=== PATIENT | female | born 1935 | race Caucasian/White ===

== ENCOUNTER 2020-09-27 13:29 | Outpatient (REF) | payer SELFPAY | END 2020-09-27 13:30 | disposition home or self-care (01) | LOC: HO.HAP 13:29 | DX: Z13.89 Encounter for screening for other disorder (principal) | CPT/HCPCS: 92700 ==

== ENCOUNTER 2020-10-16 13:25 | Outpatient (REF) | payer SELFPAY | END 2020-10-16 13:26 | disposition home or self-care (01) | LOC: HO.HAP 13:25 | DX: Z13.89 Encounter for screening for other disorder (principal) | CPT/HCPCS: 92700 ==

== ENCOUNTER 2020-10-23 10:25 | Outpatient (REF) | payer SELFPAY | END 2020-10-23 10:26 | disposition home or self-care (01) | LOC: HO.HAP 10:25 | DX: Z13.89 Encounter for screening for other disorder (principal) | CPT/HCPCS: 92700 ==

== ENCOUNTER 2024-02-23 10:32 | Outpatient (AMB) | payer MEDICARE, OTHER, SELFPAY ==
[2024-02-23 10:58] VITALS: PULSE 81; O2SAT 93; BMI 32.9
--- NOTE | 2024-02-23 10:58 | MHC.OFFVIS ---
Intake Vital Signs 02/23/24 10:58 Height 5 ft 2 in Weight 180 lb BMI 32.9 Pulse 81 Pulse Source Pulse Oximeter Pulse Oximetry (%) 93 Oxygen Delivery Method Room Air Intake Visit Reasons: COPD Maintenance Groundskeeper Required: No Allergies No Known Allergies Allergy (Verified 02/23/24 11:01) HPI HPI Comments History of Present Illness Details The patient is an 88-year-old woman with a known history of asthma COPD overlap syndrome, nocturnal hypoxia and sleep apnea. She does not use CPAP. She does use oxygen at nighttime. She has been having persistent wheezing and shortness of breath. She has a baseline. She is responding well to the current respiratory regimen. He has been having issues with cellulitis and lower extremity edema. She was initially placed on Keflex without any significant improvement. She was then [facility] which she had ultrasound negative for DVT and also had a chest x-ray demonstrating mild congestive heart failure with pleural effusions. She had been stopping her diuretics because occasions with eating or. However since then she has been using her Lasix daily 40 mg daily. She was also switched over to doxycycline appears to have cellulitis getting better but not completely gone. Therefore she needs additional antibiotics at this time. 02/28/2023 the patient is here for pulmonary follow-up visit. She continues to have some shortness of breath and chest tightness. She has a hard time walking. She does use a walker. She is now on continues oxygen although she has a portable oxygen concentrator in her house. She does to not be able to use the pulse device well. I encouraged her to try it again to see if she can get used to it in order for her to have better portability time. In addition to this the patient has been using her nebulized therapy. Seems like the DuoNeb works better than the other bronchodilator therapy so therefore will switch over to DuoNeb 4 times a day and she can use the budesonide twice a day. Hopefully this works a little better for as long she can tolerated. The patient also is having some allergy symptoms so therefore she should be placed on singular at this time to help her with her respiratory symptoms. 09/23/2023 the patient is here for pulmonary follow-up visit. overall the patient is doing better. Recently she did call because of worsening respiratory symptoms. The patient had a exacerbation of her breathing. She did take prednisone antibiotics and her symptoms did improve. she continues use respiratory therapy. Although she has been using the budesonide. She will go ahead and restarted once a day. In addition to that she does have increased lower extremity edema. She is not weighing herself. She does have a scale at home. patient did have a chest x-ray sometime in May 2023 demonstrating interval resolution of the pneumonia but she did have bilateral pleural effusions suggesting volume overload status. Patient is taking Lasix 40 mg daily. She will go ahead and increase it to 80 mg for 2-3 days and will continue to weigh herself. She will follow-up with her primary care doctor soon. 02/23/2024 the patient is here for a pulmonary follow-up visit. Overall she is doing okay. She still has her symptoms of dyspnea on exertion. [id number]-[id number] severity. She had a tendency of only using her nebulizer as needed. Family has become more adamant making sure that she does use it 2 to 3 times a day. I believe that this is helpful. Her symptoms have improved since she has been more adherent to her therapy. In addition to that we did look at her last chest x-ray demonstrating bilateral pleural effusions and suggesting of volume overload status. We did talk about the importance of monitoring closely her daily weights. The patient is aware that sometimes she may need additional diuresis. we talked about cardiac asthma as potential peribronchial edema could be the resulting in increased airway resistance and wheezing and chest tightness. Therefore she understands that keeping her volume status down will help her overall with her obstructive airway disease and also her dyspnea symptoms. She does continue to use a nebulizer therapy as is affective from beneficial. She also has her oxygen that she uses with activity and sleep. The therapy also has been affecting beneficial. [facility] Medical History (Updated 09/23/23 @ 19:07 by Sanchez Smith MD) COPD (chronic obstructive pulmonary disease) Acute confusion Pleural effusion Obesity Cataract Chronic kidney disease, stage 3b Anxiety Supplemental oxygen dependent Arthritis Intertrigo Hyperlipidemia CHF (congestive heart failure) Cellulitis Chest pain Chronic respiratory failure COPD (chronic obstructive pulmonary disease) Surgical History History of tonsillectomy History of appendectomy History of cataract surgery History of right hip replacement (~2014) History of bilateral knee replacement (~2006) Family History Father Asthma Mother Asthma Social History Household Members: Family Housing: House Do you presently have visiting nurse or other home services: No Alcohol intake: never Patient Tobacco Use Status: Never used Tobacco e-Cigarette/Vaping Use: Never Used Second Hand Smoke Exposure: No Advance Directives Date on File: 10/01/22 service: No Current occupational status: retired Cognitive needs: Yes (walker ) Hearing needs: No Vision needs: Yes (glasses) Review of Systems Const Denies chills, Reports daytime sleepiness, Reports difficulty sleeping, Reports fatigue, Denies fever(s) and Denies poor appetite Eyes Denies no additional complaints ENT Reports Normal hearing present Card Denies chest pain, Denies syncope, Denies rapid heart rate, Reports leg edema, Denies dyspnea and Reports dyspnea on exertion Resp Reports cough, Denies dyspnea, Reports dyspnea on exertion and Reports wheezing GI Denies change in stool character, Denies constipation, Denies diarrhea, Denies nausea and Denies vomiting Denies urinary frequency, Denies dysuria and Denies urinary urgency Neuro Reports Normal hearing present and Denies syncope Endo Reports fatigue Aller/Immun Reports wheezing Physical Exam Vital Signs: Last Vital Signs Pulse 81 02/23/24 10:58 Pulse Ox 93 02/23/24 10:58 Oxygen Delivery Method Room Air 02/23/24 10:58 BMI result Body Mass Index 32.9 Const General: tired appearing Neck Neck: Yes normal visual inspection, Yes full ROM and Yes no lymphadenopathy Chest Chest palpation & inspection: normal inspection of the chest Resp Auscultation: no rales, no rhonchi, no wheezes and diminished lung sounds Cardio Rate: regular rate Rhythm: regular rhythm Heart sounds: S1 normal heart sound present and S2 normal heart sound present GI Palpation (GI): Soft to palpation and nontender Auscultation: normal bowel sounds Skin General skin exam: rashes and/or lesions noted Neuro Cranial nerves: Yes Normal hearing present Extrem General: Yes edema and Yes venous stasis dermatitis Assessment & Plan Assessment & Plan (1) COPD (chronic obstructive pulmonary disease): Code(s): J44.9 - Chronic obstructive pulmonary disease, unspecified Qualifiers: COPD type: chronic bronchitis Chronic bronchitis type: simple Qualified Code(s): J41.0 - Simple chronic bronchitis (2) CHF (congestive heart failure): Code(s): I50.9 - Heart failure, unspecified Qualifiers: Heart failure chronicity: unspecified Heart failure type: unspecified Qualified Code(s): I50.9 - Heart failure, unspecified (3) Chronic respiratory failure: Code(s): J96.10 - Chronic respiratory failure, unspecified whether with hypoxia or hypercapnia Qualifiers: Respiratory failure complication: hypoxia Qualified Code(s): J96.11 - Chronic respiratory failure with hypoxia (4) Pleural effusion: Code(s): J90 - Pleural effusion, not elsewhere classified Plan continue budesonide daily Duoneb 2-4 times a day continue Singulair EMIR as needed Oxygen continuously 2L diuresis as tolerated daily weights, additional diuresis if >2lb/24hr or 3lbs/48 hours CXR if worsns Bloodwork F/U 4-6 months Orders: Orders XR chest 2V Today J41.0 - Simple chronic bronchitis, J90 - Pleural effusion, not elsewhere classified Complete Blood Count Auto Diff Today I50.9 - Heart failure, unspecified, J41.0 - Simple chronic bronchitis Liver Panel Today I50.9 - Heart failure, unspecified, J41.0 - Simple chronic bronchitis Immunoglobulin E Today I50.9 - Heart failure, unspecified, J41.0 - Simple chronic bronchitis Basic Metabolic Panel Today I50.9 - Heart failure, unspecified, J41.0 - Simple chronic bronchitis Erythrocyte Sedimentation Rate Today I50.9 - Heart failure, unspecified, J41.0 - Simple chronic bronchitis Coding Level of Care Code Est Pt Level 4 (91784) Diagnoses Simple chronic bronchitis J41.0 COPD type: chronic bronchitis Chronic bronchitis type: simple Congestive heart failure, unspecified HF chronicity, unspecified heart failure type I50.9 Heart failure chronicity: unspecified Heart failure type: unspecified Chronic respiratory failure with hypoxia J96.11 Respiratory failure complication: hypoxia Pleural effusion J90 Time Spent (min) 17
== END 2024-02-23 11:28 | disposition home or self-care (01) ==
PROVIDERS: PCP Internal Medicine; Visit Provider Hospitalist
DX: J41.0 Simple chronic bronchitis (principal); I50.9 Heart failure, unspecified; J96.11 Chronic respiratory failure with hypoxia; J90 Pleural effusion, not elsewhere classified
CPT/HCPCS: 99214

== ENCOUNTER → 2024-02-23 10:32 | Outpatient (BNVA) | payer MEDICARE, OTHER, SELFPAY | PROVIDERS: PCP Internal Medicine; Visit Provider Hospitalist | DX: J96.11 Chronic respiratory failure with hypoxia (principal); J90 Pleural effusion, not elsewhere classified; J41.0 Simple chronic bronchitis; I11.0 Hypertensive heart disease with heart failure; I50.9 Heart failure, unspecified; Z99.81 Dependence on supplemental oxygen | CPT/HCPCS: 99212 ==

== ENCOUNTER 2024-03-05 08:57 | Outpatient (AMB) | payer MEDICARE, OTHER, SELFPAY ==
[2024-03-05 10:17] VITALS: BP 110/60; PULSE 88; TEMP 36.3; O2SAT 95; BMI 32.2
--- NOTE | 2024-03-05 10:17 | AM.OFFWIN_ITS ---
Intake Vital Signs 03/05/24 10:17 Height 5 ft 2 in Weight 176 lb BMI 32.2 BP 110/60 Blood Pressure Location Lt brachial Position Sitting Pulse 88 Pulse Source Pulse Oximeter Temp 97.3 F Temp Source Temporal Artery Scan Pulse Oximetry (%) 95 Oxygen Delivery Method Room Air Intake Visit Reasons: EP Cough, Congestion Intake Note: pt is here today for cough congestion started 4 days ago Patient Tobacco Use Status: Never used Tobacco Allergies No Known Allergies Allergy (Verified 03/23/24 10:24) Do you need a note to return to daycare/school/sports/work: No HPI EP Cough, Congestion HPI Details Patient is an 88-year-old female with underlying COPD, congestive heart failure, and pneumonia history who comes to the walk-in clinic complaining of about a week of increased cough. Son is present with her today and reports that the cough has been worse as of the last 4 days. She has home oxygen but usually only requires it for extended exertion/outings, however she has been using it regularly now. She reports a productive cough worse than her baseline, along with shortness of breath. No nasal congestion, headache or dizziness, weakness, malaise or myalgias, fever or chills, chest pain, or other significant associated symptoms. [facility] Medical History COPD (chronic obstructive pulmonary disease) Acute confusion Pleural effusion Obesity Cataract Chronic kidney disease, stage 3b Anxiety Supplemental oxygen dependent Arthritis Intertrigo Hyperlipidemia CHF (congestive heart failure) Cellulitis Chest pain Chronic respiratory failure COPD (chronic obstructive pulmonary disease) Surgical History History of tonsillectomy History of appendectomy History of cataract surgery History of right hip replacement (~2014) History of bilateral knee replacement (~2006) Family History Father Asthma Mother Asthma Social History Household Members: Other Household Members Other:: grandchildren Housing: House Do you presently have visiting nurse or other home services: No Alcohol intake: never Patient Tobacco Use Status: Never used Tobacco e-Cigarette/Vaping Use: Never Used Second Hand Smoke Exposure: No Advance Directives Date on File: 10/01/22 service: No Current occupational status: retired Cognitive needs: Yes (walker ) Hearing needs: No Vision needs: Yes (glasses) Review of Systems Const All systems reviewed & are unremarkable except as noted in HPI and below Physical Exam Vital Signs: Last Vital Signs Temp 97.3 F 03/05/24 10:17 Pulse 88 03/05/24 10:17 BP 110/60 03/05/24 10:17 Pulse Ox 95 03/05/24 10:17 Oxygen Delivery Method Room Air 03/05/24 10:17 BMI result Body Mass Index 32.2 Const General: cooperative, comfortable, alert, awake, Physically active and well groomed; No anxious, diaphoretic, intoxicated appearing, poor hygiene or tired appearing Nutritional Appearance: average body habitus Orientation/consciousness: oriented to person HEENT Head: Yes normal to inspection, Yes normocephalic and Yes atraumatic Ears: hearing grossly normal bilaterally, external ears normal, TM's normal bilaterally and EAC's normal General nose exam: Normal external nose present Face and sinus: Yes normal facial exam, Yes sinuses nontender and Yes face symmetric Mouth: Normal oral and palatal mucosa present, lip normal and tongue normal Throat: Yes posterior oropharynx normal, No peritonsillar mass, No postnasal d rainage, No uvular edema and No cobblestoning Eyes General: appearance normal, both eyes and all related structures Neck Neck: Yes normal visual inspection, Yes full ROM, Yes no lymphadenopathy, Yes trachea midline, Yes supple and No anterior neck swelling Resp Other: Wearing nasal cannula with home oxygen tank Effort & Inspection: normal respiratory effort, able to speak in complete sentences (At rest), no audible wheezes, Actively coughing, no grunting, not labored, no nasal flaring, no retractions, no stridor, not tachypneic, no tripod positioning and symmetric chest movement Auscultation: no crackles, no rales, no rhonchi, no wheezes and diminished lung sounds Skin Other: Good color, warm and dry Neuro General: oriented to person Psych Appearance: grossly normal Mental Status: mental status grossly normal Speech and movement: Normal speech and movement present Affect: normal affect Attitude: cooperative Thought process: Normal thought process present Insight: Good insight present (Psych) Judgement: Good judgement present (Psych) Assessment & Plan Assessment & Plan (1) COPD exacerbation: Code(s): J44.1 - Chronic obstructive pulmonary disease with (acute) exacerbation Plan Patient is an 88-year-old female congestive heart failure, COPD and pneumonia history who comes to the walk-in clinic complaining of about a week of increased cough and mucus production, likely COPD exacerbation. Underlying viral syndrome likely, and COVID flu and RSV is pending. Two-view chest x-ray shows small bilateral effusions, and chronic changes from her COPD. I discussed this with the patient and her son, and as she is currently stable and has her home oxygen, I agreed to treat her outpatient over the weekend with course of antibiotics and a steroid taper. She should be monitored closely in have follow-up early next week either with PCP or infection control nurse if able. Son agreed to this, and to bring her to the emergency department with any worsening or worrisome symptoms Orders: Orders SARS-CoV2/FLU/RSV 03/05/24 R05.9 - Cough, unspecified XR chest 2V 03/05/24 R05.9 - Cough, unspecified Medications: New prednisone then take 3 tabs for 3 days, then 2 tabs for 3 days, then 1 tab for 3 days. 40 mg (4 x 10 mg) PO DAILY 30 tabs 0RF 3 days doxycycline hyclate 100 mg PO BID 20 tabs 0RF 10 days Coding Level of Care Code Est Pt Level 4 (02859) Diagnoses COPD exacerbation J44.1
== END 2024-03-05 12:21 | disposition home or self-care (01) ==
PROVIDERS: PCP Internal Medicine; Visit Provider Physician Assistant Medical
DX: J44.1 Chronic obstructive pulmonary disease with (acute) exacerbation (principal)
CPT/HCPCS: 99214

== ENCOUNTER 2024-03-05 10:42 | Outpatient (REF) | payer MEDICARE, OTHER, SELFPAY ==
--- NOTE | ~2024-03-05 | XR_ITS ---
EXAMINATION: XR CHEST CLINICAL INFORMATION: Cough COMPARISON: 05/26/2023 TECHNIQUE: 2 views of the chest were obtained. FINDINGS: Heart and mediastinum within normal limits. Aortic calcifications again seen. Mild biapical pleural thickening. No vascular congestion. Lungs remain hyperinflated. Small bilateral effusions and left base atelectasis. Bones are demineralized with mild compressions and mild kyphosis. XR/XR chest 2V IMPRESSION: Small effusions and left base atelectasis. Underlying hyperinflation.
[2024-03-05 15:07] LABS: Influenza A PCR NEGATIVE (Negative); Influenza B PCR NEGATIVE (Negative); Resp Syncy Virus RNA Qual PCR NEGATIVE (Negative); SARS COV2 PCR INHOUSE NEGATIVE (Negative)
== END 2024-03-05 10:43 | disposition home or self-care (01) ==
LOC: HO.HMGCX 10:42
PROVIDERS: PCP Internal Medicine; Visit Provider Physician Assistant Medical
DX: R05.9 Cough, unspecified (principal); J90 Pleural effusion, not elsewhere classified; J06.9 Acute upper respiratory infection, unspecified
CPT/HCPCS: 0241U; 71046

== ENCOUNTER 2024-03-22 08:35 | Outpatient (AMB) | payer MEDICARE, OTHER, SELFPAY ==
[2024-03-22 09:07] VITALS: BP 112/66; PULSE 63; TEMP 36.3; O2SAT 100; BMI 31.8
--- NOTE | 2024-03-22 09:07 | AM.OFFWIN_ITS ---
Intake Vital Signs 03/22/24 09:07 Height 5 ft 2 in Weight 174 lb BMI 31.8 BP 112/66 Blood Pressure Location Rt brachial Position Sitting Pulse 63 Pulse Source Pulse Oximeter Temp 97.4 F Temp Source Oral Pulse Oximetry (%) 100 Oxygen Delivery Method Room Air Intake Visit Reasons: EP lower back pain Intake Note: pt is here for lower back pain for the last few days Patient Tobacco Use Status: Never used Tobacco Allergies No Known Allergies Allergy (Verified 03/22/24 09:40) Medication List - Last Reconciled 03/22/24 by José Antonio Mays MD budesonide 0.5 mg (2 mL) inhalation BID calcitriol 0.5 mcg PO ISAAC@0900 ferrous sulfate 325 mg PO DAILY furosemide 40 mg PO DAILY ipratropium-albuterol 0.5 mg-3 mg(2.5 mg base)/3 mL 3 mL inhalation QID montelukast (Singulair) 10 mg PO BEDTIME 30 days zjpchmrr-pbo-[id number]-FA-vit K-lut 8 mg iron-400 mcg-50 mcg (Centrum Silver Women) 1 tab PO DAILY nebulizers As directed Oxygen Home Use As directed paroxetine HCl 40 mg PO BEDTIME potassium chloride ER 10 mEq PO DAILY simvastatin 40 mg PO BEDTIME Do you need a note to return to daycare/school/sports/work: No HPI EP lower back pain HPI Details 88 yr old female present to the office f or a sick visit. Patient is complaining of upper back pain and midthoracic pain in the past few days. No morning stiffness. She recently came often antibiotic week ago for presumed pneumonia. In the past symptoms of pain in the back have heralded a UTI. Patient reports no symptoms of burning or increased frequency of urination. No vaginal discharge. No fevers or chills. [facility] Medical History COPD (chronic obstructive pulmonary disease) Acute confusion Pleural effusion Obesity Cataract Chronic kidney disease, stage 3b Anxiety Supplemental oxygen dependent Arthritis Intertrigo Hyperlipidemia CHF (congestive heart failure) Cellulitis Chest pain Chronic respiratory failure COPD (chronic obstructive pulmonary disease) Surgical History History of tonsillectomy History of appendectomy History of cataract surgery History of right hip replacement (~2014) History of bilateral knee replacement (~2006) Family History Father Asthma Mother Asthma Social History Household Members: Family Housing: House Do you presently have visiting nurse or other home services: No Alcohol intake: never Patient Tobacco Use Status: Never used Tobacco e-Cigarette/Vaping Use: Never Used Second Hand Smoke Exposure: No Advance Directives Date on File: 10/01/22 service: No Current occupational status: retired Cognitive needs: Yes (walker ) Hearing needs: No Vision needs: Yes (glasses) Physical Exam Vital Signs: Last Vital Signs Temp 97.4 F 03/22/24 09:07 Pulse 63 03/22/24 09:07 BP 112/66 03/22/24 09:07 Pulse Ox 100 03/22/24 09:07 Oxygen Delivery Method Room Air 03/22/24 09:07 BMI result Body Mass Index 31.8 Const General: cooperative and healthy appearing Nutritional Appearance: well nourished Orientation/consciousness: patient oriented x3 Limitations: no limitations HEENT Head: Yes normal to inspection Eyes General: appearance normal, both eyes and all related structures Neck Neck: Yes normal visual inspection Chest Chest palpation & inspection: normal palpation of entire chest wall Resp Effort & Inspection: normal respiratory effort General: Yes no CVA tenderness Back/Spine/Pelvis Other: No paraspinal tenderness. Back: no CVA tenderness Neuro General: patient oriented x3 Results AMB Urinalysis, Automated UA Leukoctes 15 Kenzie/uL Last Edit by Dorothy Downs MA on 03/22/24 09:50 UA Nitrite Negative Last Edit by Dorothy Downs MA on 03/22/24 09:50 UA Urobilinogen 0.2 mg/dL Last Edit by Dorothy Downs MA on 03/22/24 09:50 UA Protein 15 mg/dL Last Edit by Dorothy Downs MA on 03/22/24 09:50 UA pH 6.5 Last Edit by Dorothy Downs MA on 03/22/24 09:50 UA Blood 0 Tripp/uL Last Edit by Dorothy Downs MA on 05/06/24 09:50 UA Specific [place] 1.010 Last Edit by Dorothy Downs MA on 03/22/24 09:50 UA Ketone Negative Last Edit by Dorothy Downs MA on 03/22/24 09:50 UA Bilirubin 1 mg/dL Last Edit by Dorothy Downs MA on 03/22/24 09:50 UA Glucose 0 mg/dL Last Edit by Dorothy Downs MA on 03/22/24 09:50 Assessment & Plan Assessment & Plan (1) Upper back pain: Code(s): M54.9 - Dorsalgia, unspecified Plan: Cyclobenzaprine added to the regimen. Xray is no different than the previous one. Urinalysis revd. Orders: Orders XR chest 2V Today R05.9 - Cough, unspecified Coding Level of Care Code Est Pt Level 4 (81440) Diagnoses Upper back pain M54.9
== END 2024-03-22 09:45 | disposition home or self-care (01) ==
PROVIDERS: PCP Internal Medicine; Visit Provider Internal Medicine
DX: M54.9 Dorsalgia, unspecified (principal)
CPT/HCPCS: 99214

== ENCOUNTER 2024-03-23 10:02 | Inpatient (IN) | payer MEDICARE, OTHER, SELFPAY ==
[2024-03-23] VITALS (9 sets, daily range): BP systolic 99–139; BP diastolic 47–83; PULSE 97–110; RESP 18–22; TEMP 36.6–37.2; O2SAT 88–100; BMI 32.4
--- NOTE | 2024-03-23 | ECG_ITS ---
Test Reason : CP Blood Pressure : / mmHG Vent. 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
--- NOTE | ~2024-03-23 | NM_ITS ---
PULMONARY PERFUSION ONLY STUDY: CLINICAL INDICATION: Shortness of breath. Chest pain. History of COPD. PROCEDURE: Following the intravenous administration of 3.9 millicuries technetium 99m MAA, images of the chest were obtained in multiple projections using a gamma scintiphotographic camera. The radiotracer was injected through right antecubital superficial vein. COMPARISON: Chest radiograph done on 03/23/[address] of the chest without contrast also done on 04/02/2024. PERFUSION IMAGES: No large segmental perfusion defects are present bilaterally. Decreased perfusion at left lung base seen on the posterior projection when correlating with the chest radiograph likely represent combination of pleuroparenchymal disease seen at left lung base and the contour defect produced by the heart. Note is also made of prominent pike likely represent changes secondary to known COPD. Both lung pike appear clear except for pleural parenchymal abnormalities seen at left lung base on the available chest radiograph done on the same day. NM/NM pul perfusion IMPRESSION: Based on perfusion only modified PIOPED 2 criteria, pulmonary thromboembolism is considered absent.
--- NOTE | ~2024-03-23 | CT_ITS ---
EXAMINATION: CT CHEST WITHOUT CONTRAST CLINICAL INFORMATION: COPD, chest and back pain, R/O pneumonia COMPARISON: CT chest May 15, 2023. Chest x-ray March 23, 2024 TECHNIQUE: Multidetector volumetric CT imaging of the chest was done. Axial MIP volume rendering provided. Sagittal and coronal reformatted images were obtained. This CT examination was performed using dose optimization techniques as appropriate, variously including the following: *Automated exposure control *Adjustment of mA and/or kV according to patient size (this includes techniques or standardized protocols for targeted exams where dose is matched to indication/reason for exam; i.e. extremities or head) *Use of iterative reconstruction technique DLP: 292 mGy-cm FINDINGS: LUNGS: There are a few scattered reticular nodular opacities of the lung. This includes an area where there was dense consolidation on CT chest May 15, 2023 at the posterior right upper lobe. This is likely therefore residual scarring. Linear parenchymal scarring at both lung bases. There is an ill-defined groundglass opacity in the subpleural lung right upper lobe measuring 1.5 cm axial image 262 series 6. This is stable since CAT scan May 15, 2023. According to the UPDATED 2017 Fleischner Society recommendations, the advised follow-up imaging for a single pure ground-glass nodule measuring 6 mm or greater is: CT at 6-12 months to confirm persistence, then CT every 2 years until 5 years if it persists. No acute airspace disease. No new lung nodules. There are scattered emphysematous lucencies of lungs bilaterally. MEDIASTINUM: Heart size is normal. No pericardial effusion. No significant lymphadenopathy. Small volume of calcifications of thoracic aorta. No aneurysm of aorta. CORONARY ARTERY CALCIFICATION: Small volume of coronary calcification PLEURA: There is no pleural effusion. No pleural mass or thickening. AXILLA: No lymphadenopathy. UPPER ABDOMEN: Redemonstration of cyst in left lobe of liver measuring 3.5 cm. Adrenal glands are normal. OSSEOUS STRUCTURES: Unremarkable. CT/CT chest wo IV con IMPRESSION: 1. No acute airspace disease. 2. Stable ill-defined groundglass opacity in the right upper lobe. According to the UPDATED 2017 Fleischner Society recommendations, the advised follow-up imaging for a single pure ground-glass nodule measuring 6 mm or greater is: CT at 6-12 months to confirm persistence, then CT every 2 years until 5 years if it persists. Fleischner guidelines were followed.
--- NOTE | ~2024-03-23 | XR_ITS ---
EXAMINATION: XR CHEST CLINICAL INFORMATION: Chest pain, shortness of breath COMPARISON: 03/22/2024 TECHNIQUE: Frontal view of the chest was obtained. FINDINGS: Stable small left greater than right pleural effusions area of linear atelectasis/scarring at the left lung base. No focal consolidation or edema. Stable cardiomediastinal silhouette. XR/XR chest 1V IMPRESSION: No significant change with small left greater than right pleural effusions.
--- NOTE | 2024-03-23 10:20 | PC.NURSE ---
a&ox4. vss and up to date aside from being sinus tachy on the monitor. 105bpm. pt presents to the ED d/t ongoing intermittent sternal chest pain that radiates towards lower back and dsypnea x 5 days. pt currently denies sx but displays w/ slight sob/wob. pt positioned into high fowlers. pt verbalizes transitioning from RA-2L via NC baseline for hx of COPD. on RA currently. 20gIV placed in the right AC - labs/urine obtained and sent to lab. ekg performed by tech. pt waiting to be seen by ED provider. plan of care ongoing.
[2024-03-23 10:35] LABS: MANUAL DIFF FLAG NO
[2024-03-23 10:42] LABS: Basophils Percent Auto 0.7 % (0-2); Eosinophils Absolute Auto 0.2 X10*3/uL (0.0-0.4); Eosinophils Percent Auto 2.5 % (0-4); Hematocrit 44.1 % (37.0-47.0); Hemoglobin 13.8 g/dl (12.0-16.0); Imm Gran Abs Auto 0.02 X10*3/uL (0.00-0.03); Imm Gran Pct Auto 0.3 % (0.0-0.4); Lymphocytes Absolute Auto 0.4 X10*3/uL (1.2-4.9); Lymphocytes Percent Auto 6.1 % (20-40); Mean Corpuscular HGB Conc 31.3 g/dl (31.0-35.0); Mean Corpuscular Hemoglobin 29.7 pg (27.0-33.0); Mean Corpuscular Volume 94.8 fL (80.0-98.0); Mean Platelet Volume 9.6 fL (9.4-12.3); Monocytes Absolute Auto 0.4 X10*3/uL (0.1-1.2); Monocytes Percent Auto 6.3 % (2-11); Neutrophils Absolute Auto 5.1 x10*3/uL (2.0-8.3); Neutrophils Percent Auto 84.1 % (45-73); Platelet Count 193 X10*3/uL (160-400); Red Blood Count 4.65 X10*6/uL (4.20-5.50); Red Cell Distribution Width 13.7 % (11.0-16.0)
--- NOTE | 2024-03-23 10:43 | PC.NURSE ---
pt ambulates to the restroom w/ a strong steady gait independently but became extremely sob and had to stop/hold on to wall. pt placed back in bed - 88% on RA. pt placed on 2L via NC - 96%. sob/wob noted at rest. pt positioned upright to promote patent airway. plan of care ongoing.
[2024-03-23 10:49] LABS: Appearance Urine Clear; Color Urine Yellow; Glucose Urine UA Negative (Negative); Leukocyte Esterase Urine Negative (Negative); Nitrite Urine Negative (Negative); PH 7.5 (5.0-9.0); Urine Blood Negative (Negative); Urine Ketones Negative (Negative); Urine Protein Negative (Neg-Trace)
[2024-03-23 10:50] LABS: Alanine Aminotransferase 17 U/L (0-31); Albumin Level 3.5 g/dL (3.5-5.0); Alkaline Phosphatase 77 U/L (39-117); Anion Gap 13 (12-20); Aspartate Amino Transferase 20 U/L (5-31); Bilirubin Total 0.3 mg/dL (0.0-1.0); Blood Urea Nitrogen 20 mg/dL (9-16); Calcium 9.7 mg/dL (8.4-10.2); Carbon Dioxide 33 mmol/L (22-29); Chloride 101 mmol/L (96-108); Creatinine Clr Calc Pharmacy 25.8; Estimated Glomerular Filt Rate 34; Glucose Fasting 111 mg/dL (60-99); Glucose Random 110 mg/dL (60-115); Sodium 143 mmol/L (135-145); Total Protein 6.8 g/dL (6.5-8.0)
[2024-03-23 10:53] LABS: Bacteria Urine None Seen (None Seen); Hyaline Casts Urine 0-2 /LPF (0-2); RBC Urine 0-2 /HPF (0-2); Squamous Epithelial Cell Urine 0-2 /HPF (0-2); WBC Urine 0-5 /HPF (0-5)
[2024-03-23 10:55] LABS: B Type Natriuretic Peptide 83 pg/mL (<100)
[2024-03-23 11:00] LABS: INTERNATIONAL NORM RATIO 0.8 (0.9-1.1); Prothrombin Time 10.2 SEC (11.1-13.3); Troponin-I High Sensitivity 5.3 ng/L (<3.5-17.0)
[2024-03-23 11:09] LABS: Partial Thromboplastin Time 19.5 SEC (26.0-36.8)
--- NOTE | 2024-03-23 11:21 | PC.NURSE ---
chest xray being completed at this time.
--- NOTE | 2024-03-23 13:43 | ED.CHESTPAIN ---
HPI - Chest Pain General Chief Complaint: Chest Pain Stated Complaint: DIFF BREATHING CP Time Seen by Provider: 03/23/24 13:25 Source: patient, family and EMS Mode of arrival: EMS Limitations: no limitations History of Present Illness HPI narrative: 88-year-old female with history of COPD with chronic hypoxemic respiratory failure on 2 L supplemental oxygen patient use it intermittently, unspecified CHF, CKD stage III, hyperlipidemia, anxiety presented to the ED via ambulance for 4 days of chest pain that radiates to by shoulder pain is been constant waxes and wanes for the past 4-5 days, patient was evaluated at a walk-in clinic yesterday had unremarkable chest x-ray, patient with baseline shortness of breath at all times feel is slightly worsening that her baseline for the past 4 days, no fever, no chills. Related Data Home Medications ?Medication ?Instructions ?Recorded ?Confirmed calcitriol 0.5 mcg capsule 0.5 mcg PO ISAAC@0900 03/01/22 09/23/23 ferrous sulfate 325 mg (65 mg 325 mg PO DAILY 03/01/22 09/23/23 iron) tablet Oxygen Home Use 08/30/22 09/18/23 nebulizers 08/30/22 09/18/23 gvlkfuon-phpx-tiej 8 mg-folic 400 1 tab PO DAILY 05/15/23 09/23/23 mcg-K 50 mcg-lutein 300 mcg tablet (Centrum Silver Women) Previous Rx's ?Medication ?Instructions ?Recorded furosemide 40 mg tablet 40 mg PO DAILY #90 tabs 02/23/23 montelukast 10 mg tablet 10 mg PO BEDTIME 30 days #30 tabs 02/28/23 (Singulair) potassium chloride 10 mEq 10 meq PO DAILY #90 tabs 06/25/23 tablet,extended release simvastatin 40 mg tablet 40 mg PO BEDTIME #90 tabs 06/25/23 paroxetine HCl 40 mg tablet 40 mg PO BEDTIME #90 tabs 10/27/23 budesonide 0.5 mg/2 mL suspension 0.5 mg (2 mL) inhalation BID #60 ea 03/08/24 for nebulization ipratropium 0.5 mg-albuterol 3 mg 3 ml inhalation QID #120 ea 03/08/24 (2.5 mg base)/3 mL nebulization soln cyclobenzaprine 10 mg tablet 10 mg PO BEDTIME #14 tabs 03/22/24 Allergies Allergy/AdvReac Type Severity Reaction Status Date / Time No Known Allergies Allergy Verified 03/23/24 10:24 Review of Systems Review of Systems: All other systems are reviewed and are negative Constitutional: Reports as per HPI and Reports no additional constitutional complaints Eyes: Reports as per HPI and Reports no additional eye complaints Reports system reviewed and no additional complaints, except as documented Cardiovascular: Reports as per HPI and Reports no additional cardiovascular complaints Respiratory: Reports as per HPI and Reports no additional respiratory complaints Gastrointestinal: Reports as per HPI and Reports no additional gastrointestinal complaints Genitourinary: Reports no additional female genitourinary complaints Musculoskeletal: Reports no additional musculoskeletal complaints Skin/Breast: Reports system reviewed and no additional complaints, except as docu Psychiatric: Reports no additional psychiatric complaints Endocrine: Reports no additional endocrine complaints Hematologic/Lymphatic: Reports no additional hematologic/lymphatic complaints Allergic/Immunologic: Reports no additional allergic/immunologic complaints Reports system reviewed and no additional complaints, except as documented and Reports Abnormal speech present [facility] Past Medical History Medical History COPD (chronic obstructive pulmonary disease) Acute confusion Pleural effusion Obesity Cataract Chronic kidney disease, stage 3b Anxiety Supplemental oxygen dependent Arthritis Intertrigo Hyperlipidemia CHF (congestive heart failure) Cellulitis Chest pain Chronic respiratory failure COPD (chronic obstructive pulmonary disease) Surgical History History of tonsillectomy History of appendectomy History of cataract surgery History of right hip replacement (~2014) History of bilateral knee replacement (~2006) Family History Family History Father Asthma Mother Asthma Social History Social History Household Members: Family Housing: House Do you presently have visiting nurse or other home services: No Alcohol intake: never Patient Tobacco Use Status: Never used Tobacco Smoked in Last 30 Days: No e-Cigarette/Vaping Use: Never Used Second Hand Smoke Exposure: No Use of substances other than those prescribed or required for medical reasons: No Advance Directives: No Advance Directives Information Provided: Yes Advance Directives Date on File: 10/01/22 Do you have a plan to hurt others: No Plan service: No Current occupational status: retired Cognitive needs: Yes (walker ) Hearing needs: No Vision needs: Yes (glasses) Physical Exam Vital Signs: Vital Signs: Last Vital Signs Temp 98.2 F 03/23/24 16:56 Pulse 99 03/23/24 16:56 Resp 18 03/23/24 16:56 BP 129/58 L 03/23/24 16:56 Pulse Ox 95 03/23/24 16:56 O2 Del Method Room Air 03/23/24 16:56 O2 Flow Rate 2 03/23/24 10:42 BMI result Body Mass Index 32.4 Vital signs have been reviewed and appear to be correct. Blood pressure elevated. Heart rate normal. Respiratory rate normal. Temperature normal. Oxygen saturation normal. Appearance: Alert. Oriented X3. No acute distress. Head: Normal external exam. Normocephalic. Atraumatic. No Wallace signs noted. No raccoon eyes noted Eyes: PERRLA. EOMI. Conjunctiva and sclera normal. Eyelids normal. ENT: TM's Normal. Pharynx normal. Uvula midline. Moist mucous membranes. No trismus noted. No drooling noted. No muffled voice noted. Neck: Normal inspection. Neck supple. FROM. No adenopathy. Thyroid Normal. No meningeal signs. No neck mass noted. CVS: Normal heart rate and rhythm. Heart sound normal. No murmurs noted. Pulses normal throughout. Respiratory: No respiratory distress. Painless inspiration. Breath sounds normal. Diffuse bilateral expiratory wheezing with prolonged expiration.Chest nontender. No accessory muscle usage noted or decreased air movement noted. Abdomen: Soft and nontender. Bowel sounds normal in all 4 quadrants. No distention noted. No organomegaly noted. No visible injury noted. Back: No CVA tenderness. Full range of motion noted. Skin: Skin warm and dry. Normal skin color. Normal skin turgor. No rashes/lesions/lacerations noted. Extremities: No lower extremity edema. Extremities exhibit normal range of motion. Extremities nontender. Neuro: Oriented X 3. Cranial nerve exam: II-XII are grossly intact No motor deficit. No sensory deficit. Reflexes normal. Course Reevaluation(s) Reevaluation #1: 88-year-old female history of COPD came in for 4-5 days' history of exertional dyspnea and chest pain, CT chest showed no apparent pneumonia, V/ Q scan showing no pulmonary embolism, patient do not meet criteria for SIRS given magnesium, Solu-Medrol, bronchodilator and 1 dose of doxycycline, patient's symptoms still persist will admit for further evaluation. Time: 18:07 Medical Decision Making Differential Diagnosis Differential Diagnoses: The differential diagnosis associated with the presentation includes ( Pneumonia, pneumothorax, pleural effusion, pulmonary embolism, electrolyte derangement, severe anemia, UTI, ACS, CHF, Acute on chronic kidney injury.) Admission/Observation Consideration of admission/observation: Escalation of care including admission/observation considered Consult Healthcare Provider Management of the patient was discussed with: Hospitalist ( Mena Smith) Lab Data MDM Lab Attestation statement: I reviewed the patient's lab results. 03/23/24 10:30 03/23/24 10:30 Labs: Lab Results 03/23/24 03/23/24 Range/Units 10:30 10:41 WBC 6.0 (4.8-10.8) X10*3/uL RBC 4.65 (4.20-5.50) X10*6/uL Hgb 13.8 (12.0-16.0) g/dl Hct 44.1 (37.0-47.0) % MCV 94.8 (80.0-98.0) fL MCH 29.7 (27.0-33.0) pg MCHC 31.3 (31.0-35.0) g/dl RDW 13.7 (11.0-16.0) % Plt Count 193 D (160-400) X10*3/uL MPV 9.6 (9.4-12.3) fL Immature Gran % (Auto) 0.3 (0.0-0.4) % Neut % (Auto) 84.1 H (45-73) % Lymph % (Auto) 6.1 L (20-40) % [place] % (Auto) 6.3 (2-11) % Eos % (Auto) 2.5 (0-4) % Baso % (Auto) 0.7 (0-2) % Lymph # (Auto) 0.4 L (1.2-4.9) X10*3/uL [place] # (Auto) 0.4 (0.1-1.2) X10*3/uL Eos # (Auto) 0.2 (0.0-0.4) X10*3/uL Baso # (Auto) 0.0 (0.0-0.2) X10*3/uL Abs Immat Gran (auto) 0.02 (0.00-0.03) X10*3/uL Absolute Neuts (auto) 5.1 (2.0-8.3) x10*3/uL Absolute Nucleated RBC 0.000 (0.0-0.012) X10*3/uL Nucleated RBC % (auto) 0.0 (0.0-0.2) /100WBC PT 10.2 L (11.1-13.3) SEC INR 0.8 L (0.9-1.1) APTT 19.5 L (26.0-36.8) SEC D-Dimer High Sensitivty 703 NG/ML Sodium 143 (135-145) mmol/L Potassium 4.0 (3.3-5.1) mmol/L Chloride 101 (96-108) mmol/L Carbon Dioxide 33 H (22-29) mmol/L Anion Gap 13 (12-20) BUN 20 H (9-16) mg/dL Creatinine 1.45 H (0.5-1.4) mg/dL Estim Creat Clear Calc 25.8 Estimated GFR 34 Random Glucose 110 (60-115) mg/dL Fasting Glucose 111 H (60-99) mg/dL Calcium 9.7 D (8.4-10.2) mg/dL Total Bilirubin 0.3 (0.0-1.0) mg/dL AST 20 (5-31) U/L ALT 17 (0-31) U/L Alkaline Phosphatase 77 (39-117) U/L Troponin I High Sens 5.3 (<3.5-17.0) ng/L B-Natriuretic Peptide 83 (<100) pg/mL Total Protein 6.8 (6.5-8.0) g/dL Albumin 3.5 (3.5-5.0) g/dL Urine Color Yellow Urine Appearance Clear Urine pH 7.5 (5.0-9.0) Ur Specific Marty 1.010 (1.005-1.025) Urine Protein Negative (Neg-Trace) mg/dL Urine Glucose (UA) Negative (Negative) mg/dL Urine Ketones Negative (Negative) mg/dL Urine Blood Negative (Negative) Urine Nitrite Negative (Negative) Ur Leukocyte Esterase Negative (Negative) Urine RBC 0-2 (0-2) /HPF Urine WBC 0-5 (0-5) /HPF Ur Squamous Epith Cells 0-2 (0-2) /HPF Urine Bacteria None Seen (None Seen) Hyaline Casts 0-2 (0-2) /LPF Independent Interpretation I performed an independent interpretation of an: Plain X-Ray ( chest: No significant change with bilateral pleural effusion.) and CT Scan ( chest:1. No acute airspace disease. 2. Stable ill-defined groundglass opacity in the right upper lobe. According to the UPDATED 2017 Fleischner Society recommendations, the advised follow-up imaging for a single pure ground-glass nodule measuring 6 mm or greater is: CT at 6-12 months to confirm ) Radiology Impression Discussion of test interpretation with radiology: I have reviewed the radiologist's reading. Radiologist Impression: V/Q:Based on perfusion only modified PIOPED 2 criteria, pulmonary thromboembolism is considered absent. Chronic Conditions Patient?s care impacted by: Other ( COPD.) Critical Care Time Critical Care Time Critical Care Time: Yes Total Critical Care Time: 45 Attestation: The patient was critically ill with a high probability of imminent or life-threatening deterioration. I spent greater than 30 minutes of discontinuous time evaluating the patient, delivering critical care at the bedside, discussing evaluating data with consultants. Critical care time does not include time spent performing separately billable procedures or teaching. Time spent performing critical care was 45 minutes. Discharge Plan Discharge Clinical Impression: COPD with acute exacerbation Patient Disposition: Admitted As Inpatient Prescriptions: No Action furosemide 40 mg tablet 40 mg PO DAILY Qty: 90 8RF potassium chloride 10 mEq tablet extended release 10 meq PO DAILY Qty: 90 8RF simvastatin 40 mg tablet 40 mg PO BEDTIME Qty: 90 8RF paroxetine HCl 40 mg tablet 40 mg PO BEDTIME Qty: 90 8RF budesonide 0.5 mg/2 mL suspension for nebulization 0.5 mg inhalation BID Qty: 60 11RF ipratropium-albuterol 0.5 mg-3 mg(2.5 mg base)/3 mL solution for nebulization 3 ml inhalation QID Qty: 120 11RF Centrum Silver Women 8 mg iron-400 mcg-300 mcg Tablet 1 tab PO DAILY cyclobenzaprine 10 mg tablet 10 mg PO BEDTIME Qty: 14 0RF calcitriol 0.5 mcg capsule 0.5 mcg PO ISAAC@0900 ferrous sulfate 325 mg (65 mg iron) tablet 325 mg PO DAILY Rx Instructions: with breakfast (DME) nebulizers Misc See Rx Instructions .Route Rx Instructions: As directed (DME) Oxygen Home Use Kit See Rx Instructions .Route Rx Instructions: As directed montelukast [Singulair] 10 mg tablet 10 mg PO BEDTIME 30 Days Qty: 30 11RF Print Language: Maori
--- NOTE | 2024-03-23 13:52 | PC.NURSE ---
pt to CT at this time.
--- NOTE | 2024-03-23 14:30 | PC.NURSE ---
pt back from CT at this time/now being transported to [facility]. will resume care of pt when she returns. plan of care ongoing.
[2024-03-23 14:40] LABS: D Dimer High Sensitivity 703 NG/ML
[2024-03-23] MEDS: Albuterol Sulfate 2.5 MG, Albuterol/Iprat 2.5/0.5MG 3 ML 3 ML INHALE (18:26)
[2024-03-23] MEDS: methylPREDNISolone Sod Succ 125 MG/2 ML VIAL IVPUSH (18:29)
[2024-03-23] MEDS: Magnesium Sulfate/H2O 2 GM/50 ML PIGGYBACK IV (18:29)
[2024-03-23] MEDS: Doxycycline Monohydrate 100 MG CAPSULE PO (18:29)
--- NOTE | 2024-03-23 18:32 | PC.NURSE ---
vss and up to date nsr/sinus tachy on the cardiac nurse specialist. HR between 95-105bpm. denies chest pain/palpitations. pt still displays w/ sob. medication administered per provider order. pt receiving breathing treatment via RT. pt spoke w/ hospitalist/aware of plan of care moving forward. family bedside for support. call logan placed within reach.
--- NOTE | 2024-03-23 18:34 | P.HPHOSP_ITS ---
History of Present Illness Date of Service: 03/23/24 Chief Complaint: Shortness of breath 88-year-old woman with a history of chronic respiratory failure on home O2 2 L presented to the ER with complaints of worsening shortness of breath over the last 4 days. She reported that initially started with chest pain radiating to her back and then she started getting more shortness of breath especially with ambulation. She reports that she is pretty independent, she still drives and she has not been feeling well recently. She denies recent illness, travel, sick contacts, fever, chills, nausea, vomiting, diarrhea. In the ER, chest x-ray was negative for consolidation or effusion. Flu, COVID and RSV negative. She was hypoxic to 88%, labs all within acceptable limits. Patient was given a dose of IV Solu-Medrol, doxycycline, albuterol, magnesium. She will be admitted for further management of acute on chronic hypoxic respiratory failure secondary to COPD exacerbation. Review of Systems 2 Review of Systems: Denies any recent fever chills or decrease in appetite respiratory see HPI cardiovascular denies chest pain gastrointestinal denies any dysphagia abdominal pain nausea vomiting or diarrhea genitourinary denies any dysuria frequency or hematuria musculoskeletal denies any joint pain or swelling neuropsych denies any weakness or seizures all other systems reviewed are negative [facility] Medical History COPD (chronic obstructive pulmonary disease) Acute confusion Pleural effusion Obesity Cataract Chronic kidney disease, stage 3b Anxiety Supplemental oxygen dependent Arthritis Intertrigo Hyperlipidemia CHF (congestive heart failure) Cellulitis Chest pain Chronic respiratory failure COPD (chronic obstructive pulmonary disease) Family History Father Asthma Mother Asthma Surgical History History of tonsillectomy History of appendectomy History of cataract surgery History of right hip replacement (~2014) History of bilateral knee replacement (~2006) Social History Household Members: Family Housing: House Do you presently have visiting nurse or other home services: No Alcohol intake: never Patient Tobacco Use Status: Never used Tobacco Smoked in Last 30 Days: No e-Cigarette/Vaping Use: Never Used Second Hand Smoke Exposure: No Use of substances other than those prescribed or required for medical reasons: No Advance Directives: No Advance Directives Information Provided: Yes Advance Directives Date on File: 10/01/22 Do you have a plan to hurt others: No Plan Nutrition Risks: No Nutritional Risk service: No Current occupational status: retired Cognitive needs: Yes (walker ) Hearing needs: No Vision needs: Yes (glasses) Meds Allergies Allergy/AdvReac Type Severity Reaction Status Date / Time No Known Allergies Allergy Verified 03/23/24 10:24 Active Medications: Current Medications Acetaminophen (Acetaminophen 325 Mg Tablet) 650 mg PO Q6H PRN PRN Reason: Pain, Mild (Pain Scale 1-3) Albuterol/Ipratropium (Albuterol/Iprat 2.5/0.5mg 3 Ml Ampul.Neb) 3 ml INHALE RQ4H WHILE AWAKE JAZMINE Heparin Sodium (Porcine) (Heparin Sodium,Porcine 5,000 Unit/Ml Vial) 5,000 unit SUBCUT Q12H JAZMINE Magnesium Sulfate (Magnesium Sulfate/H2o) 2 gm in 50 mls @ 25 mls/hr IV ONCE ONE Stop: 03/23/24 20:03 Last Admin: 03/23/24 18:29 Dose: 25 mls/hr Methylprednisolone Sodium Succinate (Methylprednisolone Sod Succ 40 Mg/Ml Vial) 40 mg IVPUSH Q8H JAZMINE Ondansetron HCl (Ondansetron Hcl 4 Mg/2 Ml Vial) 4 mg IVPUSH Q8H PRN PRN Reason: Nausea and Vomiting Sodium Chloride (0.9 % Sodium Chloride Flush 3 Ml Syringe) 3 ml IVFLUSH QSHIFT [facility] Home Medications ?Medication ?Instructions ?Recorded ?Confirmed ?Last Taken ?Type calcitriol 0.5 mcg capsule 0.5 mcg PO ISAAC@0900 03/01/22 09/23/23 05/13/23 History ferrous sulfate 325 mg (65 mg 325 mg PO DAILY 03/01/22 09/23/23 05/13/23 History iron) tablet Oxygen Home Use 08/30/22 09/18/23 Unknown History nebulizers 08/30/22 09/18/23 Unknown History ueydupnx-culs-cpya 8 mg-folic 400 1 tab PO DAILY 05/15/23 09/23/23 05/13/23 History mcg-K 50 mcg-lutein 300 mcg tablet (Centrum Silver Women) Physical Exam 2 Vital Signs and Narrative: Vital Signs: Last Vital Signs Temp 98.6 F 03/23/24 18:31 Pulse 103 H 03/23/24 18:31 Resp 18 03/23/24 18:31 BP 139/83 03/23/24 18:31 Pulse Ox 97 03/23/24 18:31 O2 Del Method Nasal Cannula 03/23/24 18:31 O2 Flow Rate 2 03/23/24 18:31 BMI result Body Mass Index 32.4 Appearing in no acute distress head is normocephalic atraumatic eyes pupils are PERRLA sclera is anicteric mouth throat mucous membranes are intact and moist neck is supple no lymphadenopathy, no JVD noted lung sounds diminished throughout heart regular rate rhythm, clear S1, S2 positive bowel sounds, abdomen is soft, nontender neuro patient is alert x3, no focal deficits Results Labs 03/23/24 10:30 03/23/24 10:30 Labs: Laboratory Results - last 24 hr 03/23/24 03/23/24 10:30 10:41 MCV 94.8 MCH 29.7 MCHC 31.3 RDW 13.7 Plt Count 193 D MPV 9.6 Immature Gran % (Auto) 0.3 Neut % (Auto) 84.1 H Lymph % (Auto) 6.1 L [place] % (Auto) 6.3 Eos % (Auto) 2.5 Baso % (Auto) 0.7 Lymph # (Auto) 0.4 L [place] # (Auto) 0.4 Eos # (Auto) 0.2 Baso # (Auto) 0.0 Abs Immat Gran (auto) 0.02 Absolute Neuts (auto) 5.1 Absolute Nucleated RBC 0.000 Nucleated RBC % (auto) 0.0 PT 10.2 L INR 0.8 L APTT 19.5 L D-Dimer High Sensitivty 703 Anion Gap 13 Estim Creat Clear Calc 25.8 Estimated GFR 34 Random Glucose 110 Fasting Glucose 111 H Calcium 9.7 D Total Bilirubin 0.3 AST 20 ALT 17 Alkaline Phosphatase 77 Troponin I High Sens 5.3 B-Natriuretic Peptide 83 Total Protein 6.8 Albumin 3.5 Urine Color Yellow Urine Appearance Clear Urine pH 7.5 Ur Specific [place] 1.010 Urine Protein Negative Urine Glucose (UA) Negative Urine Ketones Negative Urine Blood Negative Urine Nitrite Negative Ur Leukocyte Esterase Negative Urine RBC 0-2 Urine WBC 0-5 Ur Squamous Epith Cells 0-2 Urine Bacteria None Seen Hyaline Casts 0-2 Imaging Radiologist's Impressions: Impressions Chest X-Ray 03/23/24 11:25 IMPRESSION: No significant change with small left greater than right pleural effusions. Chest CT 03/23/24 14:04 IMPRESSION: 1. No acute airspace disease. 2. Stable ill-defined groundglass opacity in the right upper lobe. According to the UPDATED 2017 Fleischner Society recommendations, the advised follow-up imaging for a single pure ground-glass nodule measuring 6 mm or greater is: CT at 6-12 months to confirm persistence, then CT every 2 years until 5 years if it persists. Fleischner guidelines were followed. Pulmonary Perfusion Imaging 03/23/24 14:55 IMPRESSION: Based on perfusion only modified PIOPED 2 criteria, pulmonary thromboembolism is considered absent. Assessment and Plan (1) COPD with acute exacerbation: Status: Acute Plan 88-year-old woman admitted for acute hypoxic respiratory failure secondary to COPD exacerbation Acute on chronic hypoxic respiratory failure secondary to COPD/asthma exacerbation On home O2 2 L, continue and titrate to keep oxygen saturation greater than 90% No consolidation noted on chest x-ray, flu, COVID and RSV negative Negative V/Q scan IV Solu-Medrol, scheduled DuoNebs Cough suppressant as needed Heart failure with preserved ejection fraction No exacerbation Continue furosemide Normocytic anemia No overt bleeding Continue iron supplementation Mental health Continue home medications Hyperlipidemia Continue statin CKD stage 3 Appears to be close to baseline monitor Sleep apnea Not on CPAP, uses oxygen at night Obesity. BMI 32.4 Discussed importance of weight management as this may be contributing to worsening of other comorbidities DVT prophylaxis with heparin Full code Patient requires at least 48 hours for treatment of COPD requiring IV steroids and scheduled DuoNeb treatments. Due to patient's age and other comorbidities she is at high risk for decompensation. Quality Stroke Does the patient have a stroke diagnosis?: No VTE Prior VTE?: No VTE Risk Level:: Medical - moderate - high VTE Device Contraindication: Treatment Not Indicated VTE Drug Contraindication: N/A - Med Ordered
--- NOTE | 2024-03-23 18:49 | PHA.MEDREC ---
Pharmacy Consult ? Medication Reconciliation Pharmacy has completed the medication reconciliation. Patient and her son confirmed medications. Patient's son report KCl is current on hold due to high potassium levels. Renea Lara, AsherD
[2024-03-23] MEDS: Heparin Sodium,Porcine 5,000 UNIT/ML VIAL 5000 UNIT SUBCUT (19:20)
--- NOTE | 2024-03-23 19:32 | PC.NURSE ---
pt medicated per JAN. pt resting quietly in bed, no complaints at this time. VSS, 2L NC 100% O2. pt requested dinner. provided pt with sandwich and drink. pt aware of plan of care
[2024-03-23] MEDS: Albuterol/Iprat 2.5/0.5MG 3 ML AMPUL.NEB INHALE (19:44)
--- NOTE | 2024-03-23 19:51 | PC.NURSE ---
respiratory at bedside for breathing treatment
[2024-03-23] MEDS: 0.9 % Sodium Chloride Flush 3 ML SYRINGE IVFLUSH (23:28)
--- NOTE | 2024-03-23 23:42 | PC.NURSE ---
pt repositioned, legs elevated, head of bed elevated per request
[2024-03-24] VITALS (10 sets, daily range): BP systolic 110–135; BP diastolic 63–72; PULSE 80–104; RESP 16–28; TEMP 36.1–36.7; O2SAT 93–96
--- NOTE | 2024-03-24 02:53 | MHC.EDTECH ---
patient resting comfortably VSS
--- NOTE | 2024-03-24 03:30 | MHC.EDTECH ---
patient ambulated to bathroom at 3:30 am
[2024-03-24 05:50] LABS: Basophils Percent Auto 0.3 % (0-2); Hematocrit 43.3 % (37.0-47.0); Hemoglobin 13.4 g/dl (12.0-16.0); Imm Gran Abs Auto 0.01 X10*3/uL (0.00-0.03); Imm Gran Pct Auto 0.3 % (0.0-0.4); Lymphocytes Absolute Auto 0.2 X10*3/uL (1.2-4.9); Lymphocytes Percent Auto 5.6 % (20-40); MANUAL DIFF FLAG SCAN; Mean Corpuscular HGB Conc 30.9 g/dl (31.0-35.0); Mean Corpuscular Hemoglobin 29.1 pg (27.0-33.0); Mean Corpuscular Volume 94.1 fL (80.0-98.0); Mean Platelet Volume 9.9 fL (9.4-12.3); Monocytes Absolute Auto 0.1 X10*3/uL (0.1-1.2); Neutrophils Absolute Auto 2.8 x10*3/uL (2.0-8.3); Neutrophils Percent Auto 91.8 % (45-73); Platelet Count 190 X10*3/uL (160-400); Red Cell Distribution Width 13.5 % (11.0-16.0); SCAN SMEAR FLAG 1
[2024-03-24 06:06] LABS: Anion Gap 19 (12-20); Blood Urea Nitrogen 23 mg/dL (9-16); Calcium 9.3 mg/dL (8.4-10.2); Carbon Dioxide 25 mmol/L (22-29); Chloride 101 mmol/L (96-108); Creatinine Clr Calc Pharmacy 25.4; Estimated Glomerular Filt Rate 33; Glucose Random 163 mg/dL (60-115); Potassium 4.3 mmol/L (3.3-5.1); Sodium 141 mmol/L (135-145)
[2024-03-24 06:13] LABS: SLIDE REVIEW VERIFIED
[2024-03-24] MEDS: methylPREDNISolone Sod Succ 40 MG/ML VIAL IVPUSH ×3 (06:17→21:52)
--- NOTE | 2024-03-24 07:08 | PC.NURSE ---
assumed care of pt at 0700, a&ox4, vss, sitting up in bed eating breakfast, O2 decreased to 2L - hx COPD goal maintained O2 90-95 per protocol. pt pending bed assignment.
[2024-03-24] MEDS: 0.9 % Sodium Chloride Flush 3 ML SYRINGE IVFLUSH ×2 (07:52→20:18)
[2024-03-24] MEDS: Heparin Sodium,Porcine 5,000 UNIT/ML VIAL 5000 UNIT SUBCUT ×2 (07:53→17:23)
[2024-03-24] MEDS: Albuterol/Iprat 2.5/0.5MG 3 ML AMPUL.NEB INHALE ×4 (08:05→20:08)
[2024-03-24] MEDS: Furosemide 40 MG TABLET PO (10:21)
[2024-03-24] MEDS: Ferrous Sulfate 324 MG TABLET.DR PO (10:21)
[2024-03-24] MEDS: Multivitamin TABLET 1 TAB PO (10:25)
--- NOTE | 2024-03-24 11:11 | HO.PM.IMPN ---
Subjective Subjective Date of Service: 03/24/24 Review of Systems Follow up COPD exacerbation feeling better but still with some MONAE Physical Exam Vital Signs: Vital Signs: Last Vital Signs Temp 98.1 F 03/24/24 10:26 Pulse 86 03/24/24 10:26 Resp 23 H 03/24/24 10:26 BP 123/63 03/24/24 10:26 Pulse Ox 94 03/24/24 10:26 O2 Del Method Nasal Cannula 03/24/24 10:26 O2 Flow Rate 2 03/24/24 10:26 BMI result Body Mass Index 32.4 Appearing in no acute distress lung sounds diminished heart regular rate rhythm, clear S1, S2 positive bowel sounds, abdomen is soft, nontender neuro patient is alert x3, no focal deficits Objective Data Active Medications Acetaminophen (Acetaminophen 325 Mg Tablet) 650 mg PO Q6H PRN PRN Reason: Pain, Mild (Pain Scale 1-3) Albuterol/Ipratropium (Albuterol/Iprat 2.5/0.5mg 3 Ml Ampul.Neb) 3 ml INHALE RQ4H WHILE AWAKE [facility] Last Admin: 03/24/24 08:05 Dose: 3 ml Documented By: ASH Atorvastatin Calcium (Atorvastatin Calcium 20 Mg Tablet) 20 mg PO BEDTIME JAZMINE Calcitriol (Calcitriol 0.25 Mcg Capsule) 0.5 mcg PO ISAAC@0900 [facility] Cyclobenzaprine HCl (Cyclobenzaprine Hcl 10 Mg Tablet) 10 mg PO BEDTIME JAZMINE Ferrous Sulfate (Ferrous Sulfate 324 Mg Tablet.) 324 mg PO DAILY [facility] Last Admin: 03/24/24 10:21 Dose: 324 mg Documented By: ADÁN Furosemide (Furosemide 40 Mg Tablet) 40 mg PO DAILY [facility]; Protocol Last Admin: 03/24/24 10:21 Dose: 40 mg Documented By: ADÁN Guaifenesin/Dextromethorphan (Guaifenesin Dm 100/10/5 Ml 5 Ml Syrup) 5 ml PO Q4H PRN PRN Reason: cough Heparin Sodium (Porcine) (Heparin Sodium,Porcine 5,000 Unit/Ml Vial) 5,000 unit SUBCUT Q12H [facility] Last Admin: 03/24/24 07:53 Dose: 5,000 unit Documented By: ADÁN Methylprednisolone Sodium Succinate (Methylprednisolone Sod Succ 40 Mg/Ml Vial) 40 mg IVPUSH Q8H [facility] Last Admin: 03/24/24 06:17 Dose: 40 mg Documented By: ALTAGRACIA Montelukast Sodium (Montelukast Sodium 10 Mg Tablet) 10 mg PO BEDTIME [facility] Multivitamins/Vitamin C (Multivitamin Tablet) 1 tab PO DAILY [facility] Last Admin: 03/24/24 10:25 Dose: 1 tab Documented By: ADÁN Ondansetron HCl (Ondansetron Hcl 4 Mg/2 Ml Vial) 4 mg IVPUSH Q8H PRN PRN Reason: Nausea and Vomiting Paroxetine HCl (Paroxetine Hcl 40 Mg Tablet) 40 mg PO BEDTIME [facility] Sodium Chloride (0.9 % Sodium Chloride Flush 3 Ml Syringe) 3 ml IVFLUSH QSHIFT [facility] Last Admin: 03/24/24 07:52 Dose: 3 ml Documented By: AÁDN Labs 03/24/24 04:40 03/24/24 04:40 Labs: Laboratory Results - last 24 hr 03/23/24 03/24/24 10:30 04:40 MCV 94.1 MCH 29.1 MCHC 30.9 L RDW 13.5 Plt Count 190 MPV 9.9 Immature Gran % (Auto) 0.3 Neut % (Auto) 91.8 H Lymph % (Auto) 5.6 L [place] % (Auto) 2.0 Eos % (Auto) 0.0 Baso % (Auto) 0.3 Lymph # (Auto) 0.2 L [place] # (Auto) 0.1 Eos # (Auto) 0.0 Baso # (Auto) 0.0 Abs Immat Gran (auto) 0.01 Absolute Neuts (auto) 2.8 Absolute Nucleated RBC 0.000 Nucleated RBC % (auto) 0.0 Smear Tech's Comments VERIFIED PT 10.2 L INR 0.8 L APTT 19.5 L D-Dimer High Sensitivty 703 Anion Gap 19 Estim Creat Clear Calc 25.4 Estimated GFR 33 Random Glucose 163 H Calcium 9.3 Assessment and Plan (1) COPD with acute exacerbation: Status: Acute Plan 88-year-old woman admitted for acute hypoxic respiratory failure secondary to COPD exacerbation Acute on chronic hypoxic respiratory failure secondary to COPD/asthma exacerbation On home O2 2 L, continue and titrate to keep oxygen saturation greater than 90% No consolidation noted on chest x-ray, flu, COVID and RSV negative Negative V/Q scan IV Solu-Medrol, scheduled DuoNebs Cough suppressant as needed Heart failure with preserved ejection fraction No exacerbation Continue furosemide Normocytic anemia No overt bleeding Continue iron supplementation Mental health Continue home medications Hyperlipidemia Continue statin CKD stage 3 Appears to be close to baseline monitor Sleep apnea Not on CPAP, uses oxygen at night Obesity. BMI 32.4 Discussed importance of weight management as this may be contributing to worsening of other comorbidities DVT prophylaxis with heparin Attending Dr. José Full code continue treatment of COPD requiring IV steroids and scheduled DuoNeb treatments. Due to patient's age and other comorbidities she is at high risk for decompensation. Quality Stroke Does the patient have a stroke diagnosis?: No VTE Prior VTE?: No VTE Risk Level:: Medical - moderate - high VTE Device Contraindication: Treatment Not Indicated VTE Drug Contraindication: N/A - Med Ordered
--- NOTE | 2024-03-24 14:40 | MHC.CM.PN ---
pt lives with family .she drives is on home 02 dc plan home no servies
--- NOTE | 2024-03-24 15:36 | PC.NURSE ---
patient has rash to upper shoulders and neck area, states it started 4 days ago and does not itch and isn't painful, image sent to provider with no new orders at this time
[2024-03-24] MEDS: valACYclovir HCL 1,000 MG TABLET 1000 MG PO (17:21)
[2024-03-24] MEDS: Atorvastatin Calcium 20 MG TABLET PO (20:17)
[2024-03-24] MEDS: Cyclobenzaprine HCl 10 MG TABLET PO (20:17)
[2024-03-24] MEDS: PARoxetine HCL 40 MG TABLET PO (20:17)
[2024-03-24] MEDS: Montelukast Sodium 10 MG TABLET PO (20:17)
[2024-03-25] VITALS (8 sets, daily range): BP systolic 130–143; BP diastolic 60–71; PULSE 84–101; RESP 18–28; TEMP 36.1–36.3; O2SAT 95–101
[2024-03-25] MEDS: Acetaminophen 325 MG TABLET 650 MG PO (01:06)
[2024-03-25] MEDS: valACYclovir HCL 1,000 MG TABLET 1000 MG PO ×3 (01:07→18:06)
[2024-03-25] MEDS: methylPREDNISolone Sod Succ 40 MG/ML VIAL IVPUSH ×2 (05:54→18:06)
[2024-03-25] MEDS: Albuterol/Iprat 2.5/0.5MG 3 ML AMPUL.NEB INHALE ×4 (07:42→20:55)
[2024-03-25] MEDS: Multivitamin TABLET 1 TAB PO (07:53)
[2024-03-25] MEDS: Heparin Sodium,Porcine 5,000 UNIT/ML VIAL 5000 UNIT SUBCUT ×2 (07:53→18:06)
[2024-03-25] MEDS: Furosemide 40 MG TABLET PO (07:55)
[2024-03-25] MEDS: 0.9 % Sodium Chloride Flush 3 ML SYRINGE IVFLUSH ×2 (07:57→16:36)
[2024-03-25] MEDS: Ferrous Sulfate 324 MG TABLET.DR PO (07:58)
--- NOTE | 2024-03-25 16:05 | HO.PM.IMPN ---
Subjective Subjective Date of Service: 03/25/24 Interval History: seen and examined this morning follow up for COPD exacerbation and skin rash reports improvement in breathing, skin rash - no pain or itching Review of Systems Review of Systems: Yes all other systems are reviewed and are negative Constitutional Constitutional: Denies chills and Denies fever(s) Cardiovascular Cardiovascular: Denies chest pain and Denies palpitations Endocrine Endocrine: Denies palpitations Physical Exam Vital Signs: Vital Signs: Last Vital Signs Temp 97.2 F 03/25/24 15:32 Pulse 98 03/25/24 15:49 Resp 22 H 03/25/24 15:49 BP 143/71 H 03/25/24 15:32 Pulse Ox 97 03/25/24 15:32 O2 Del Method Nasal Cannula 03/25/24 15:32 O2 Flow Rate 2 03/25/24 15:32 BMI result Body Mass Index 32.4 Const: General: cooperative, comfortable, alert and awake Nutritional Appearance: overweight Resp: Effort & Inspection: normal respiratory effort, able to speak in complete sentences, no respiratory distress and no use of accessory muscles Cardio: Rate: regular rate GI: Inspection: No distended Palpation (GI): Soft to palpation and nontender Skin: Other: Neuro: General: moves all extremities and CN's II-XI intact bilaterally Objective Data Active Medications Acetaminophen (Acetaminophen 325 Mg Tablet) 650 mg PO Q6H PRN PRN Reason: Pain, Mild (Pain Scale 1-3) Last Admin: 03/25/24 01:06 Dose: 650 mg Documented By: JANELLE Albuterol/Ipratropium (Albuterol/Iprat 2.5/0.5mg 3 Ml Ampul.Neb) 3 ml INHALE RQ4H WHILE AWAKE [facility] Last Admin: 03/25/24 15:47 Dose: 3 ml Documented By: APURVA Atorvastatin Calcium (Atorvastatin Calcium 20 Mg Tablet) 20 mg PO BEDTIME [facility] Last Admin: 03/24/24 20:17 Dose: 20 mg Documented By: JANELLE Calcitriol (Calcitriol 0.25 Mcg Capsule) 0.5 mcg PO ISAAC@0900 [facility] Cyclobenzaprine HCl (Cyclobenzaprine Hcl 10 Mg Tablet) 10 mg PO BEDTIME [facility] Last Admin: 03/24/24 20:17 Dose: 10 mg Documented By: JANELLE Ferrous Sulfate (Ferrous Sulfate 324 Mg Tablet.) 324 mg PO DAILY [facility] Last Admin: 03/25/24 07:58 Dose: 324 mg Documented By: PANFILO Furosemide (Furosemide 40 Mg Tablet) 40 mg PO DAILY [facility]; Protocol Last Admin: 03/25/24 07:55 Dose: 40 mg Documented By: PANFILO Guaifenesin/Dextromethorphan (Guaifenesin Dm 100/10/5 Ml 5 Ml Syrup) 5 ml PO Q4H PRN PRN Reason: cough Heparin Sodium (Porcine) (Heparin Sodium,Porcine 5,000 Unit/Ml Vial) 5,000 unit SUBCUT Q12H [facility] Last Admin: 03/25/24 07:53 Dose: 5,000 unit Documented By: PANFILO Methylprednisolone Sodium Succinate (Methylprednisolone Sod Succ 40 Mg/Ml Vial) 40 mg IVPUSH Q12H [facility] Montelukast Sodium (Montelukast Sodium 10 Mg Tablet) 10 mg PO BEDTIME [facility] Last Admin: 03/24/24 20:17 Dose: 10 mg Documented By: JANELLE Multivitamins/Vitamin C (Multivitamin Tablet) 1 tab PO DAILY [facility] Last Admin: 03/25/24 07:53 Dose: 1 tab Documented By: PANFILO Ondansetron HCl (Ondansetron Hcl 4 Mg/2 Ml Vial) 4 mg IVPUSH Q8H PRN PRN Reason: Nausea and Vomiting Paroxetine HCl (Paroxetine Hcl 40 Mg Tablet) 40 mg PO BEDTIME [facility] Last Admin: 03/24/24 20:17 Dose: 40 mg Documented By: JANELLE Sodium Chloride (0.9 % Sodium Chloride Flush 3 Ml Syringe) 3 ml IVFLUSH QSHIFT [facility] Last Admin: 03/25/24 07:57 Dose: 3 ml Documented By: PANFILO Valacyclovir HCl (Valacyclovir Hcl 1,000 Mg Tablet) 1,000 mg PO Q8H [facility] Stop: 03/31/24 17:59 Last Admin: 03/25/24 09:44 Dose: 1,000 mg Documented By: POLI Joyce 03/24/24 04:40 03/24/24 04:40 Assessment and Plan (1) COPD with acute exacerbation: Status: Acute Plan 88-year-old woman admitted for acute hypoxic respiratory failure secondary to COPD exacerbation Acute on chronic hypoxic respiratory failure secondary to COPD/asthma exacerbation On home O2 2 L, continue and titrate to keep oxygen saturation greater than 90% No consolidation noted on chest x-ray, flu, COVID and RSV negative Negative V/Q scan chest CT stable ill defined groundglass opacity in RUL (recommend outpatient follow up) wean IV Solu-Medrol, continue scheduled DuoNebs Cough suppressant as needed skin rash initially thought possible zoster but not painful per patient and seems to have spread outside of dermatome and timeline unclear as well. she states the part on her back has been present for weeks? however seems to have spread since admission. not on antibiotics. continue steroids continue valtrex until ID eval consult to general surgery for ?punch biopsy Heart failure with preserved ejection fraction No exacerbation Continue furosemide Normocytic anemia No overt bleeding Continue iron supplementation Mental health Continue home medications Hyperlipidemia Continue statin CKD stage 3 Appears to be close to baseline monitor Sleep apnea Not on CPAP, uses oxygen at night Obesity. BMI 32.4 Discussed importance of weight management as this may be contributing to worsening of other comorbidities DVT prophylaxis with heparin Attending Dr. José Full code continue treatment of COPD requiring IV steroids and scheduled DuoNeb treatments. Due to patient's age and other comorbidities she is at high risk for decompensation. Quality Stroke Does the patient have a stroke diagnosis?: No VTE Prior VTE?: No VTE Risk Level:: Medical - moderate - high VTE Device Contraindication: Treatment Not Indicated VTE Drug Contraindication: N/A - Med Ordered
[2024-03-25] MEDS: Magnesium Hydrox/Alum Hydrox 30 ML ORAL.SUSP 15 ML PO (16:35)
[2024-03-25] MEDS: PARoxetine HCL 40 MG TABLET PO (21:10)
[2024-03-25] MEDS: Atorvastatin Calcium 20 MG TABLET PO (21:10)
[2024-03-25] MEDS: Montelukast Sodium 10 MG TABLET PO (21:10)
[2024-03-25] MEDS: Cyclobenzaprine HCl 10 MG TABLET PO (21:10)
[2024-03-26] VITALS (8 sets, daily range): BP systolic 113–130; BP diastolic 58–70; PULSE 84–99; RESP 14–22; TEMP 36.1–36.6; O2SAT 95–100
[2024-03-26] MEDS: Acetaminophen 325 MG TABLET 650 MG PO (00:22)
[2024-03-26] MEDS: valACYclovir HCL 1,000 MG TABLET 1000 MG PO (00:24)
[2024-03-26] MEDS: 0.9 % Sodium Chloride Flush 3 ML SYRINGE IVFLUSH ×2 (00:24→08:10)
[2024-03-26] MEDS: Melatonin 3 MG TABLET 6 MG PO (01:43)
[2024-03-26] MEDS: Heparin Sodium,Porcine 5,000 UNIT/ML VIAL 5000 UNIT SUBCUT ×2 (06:17→18:30)
[2024-03-26] MEDS: methylPREDNISolone Sod Succ 40 MG/ML VIAL IVPUSH ×2 (06:17→14:08)
[2024-03-26] MEDS: Albuterol/Iprat 2.5/0.5MG 3 ML AMPUL.NEB INHALE ×4 (07:45→19:16)
[2024-03-26] MEDS: Ferrous Sulfate 324 MG TABLET.DR PO (08:10)
[2024-03-26] MEDS: Furosemide 40 MG TABLET PO (08:10)
[2024-03-26] MEDS: Multivitamin TABLET 1 TAB PO (08:10)
[2024-03-26 10:49] LABS: Anion Gap 18 (12-20); Blood Urea Nitrogen 41 mg/dL (9-16); Calcium 9.2 mg/dL (8.4-10.2); Carbon Dioxide 28 mmol/L (22-29); Chloride 97 mmol/L (96-108); Estimated Glomerular Filt Rate 31; Glucose Random 212 mg/dL (60-115); Potassium 4.3 mmol/L (3.3-5.1); Sodium 139 mmol/L (135-145)
--- NOTE | 2024-03-26 12:21 | MHC.CM.PN ---
Per MD rounds patient is not medically cleared for dc. Awaiting ID consult for rash. Plan remains likely home no services. CM will continue to follow.
--- NOTE | 2024-03-26 12:39 | HO.PM.IMPN ---
Subjective Subjective Date of Service: 03/26/24 Interval History: Seen and examined this morning Follow-up for COPD exacerbation, herpes zoster Patient reports that her breathing is at baseline, herpes zoster rash not painful at this time No fever, chills Review of Systems Review of Systems: Yes all other systems are reviewed and are negative Constitutional Constitutional: Denies chills and Denies fever(s) Cardiovascular Cardiovascular: Denies chest pain and Denies palpitations Endocrine Endocrine: Denies palpitations Physical Exam Vital Signs: Vital Signs: Last Vital Signs Temp 97.1 F 03/26/24 07:58 Pulse 84 03/26/24 11:26 Resp 20 03/26/24 11:26 BP 130/70 03/26/24 07:58 Pulse Ox 100 03/26/24 07:58 O2 Del Method Nasal Cannula 03/26/24 07:58 O2 Flow Rate 2 03/26/24 07:58 BMI result Body Mass Index 32.4 Const: General: cooperative, comfortable, alert and awake Nutritional Appearance: overweight Resp: Effort & Inspection: normal respiratory effort, able to speak in complete sentences, no respiratory distress and no use of accessory muscles Cardio: Rate: regular rate GI: Inspection: No distended Palpation (GI): Soft to palpation and nontender Skin: Other: closer picture of chest Neuro: General: moves all extremities and CN's II-XI intact bilaterally Objective Data Active Medications Acetaminophen (Acetaminophen 325 Mg Tablet) 650 mg PO Q6H PRN PRN Reason: Pain, Mild (Pain Scale 1-3) Last Admin: 03/26/24 00:22 Dose: 650 mg Documented By: ANTJOSÉ Albuterol/Ipratropium (Albuterol/Iprat 2.5/0.5mg 3 Ml Ampul.Neb) 3 ml INHALE RQ4H WHILE AWAKE [facility] Last Admin: 03/26/24 11:26 Dose: 3 ml Documented By: DANITZA Atorvastatin Calcium (Atorvastatin Calcium 20 Mg Tablet) 20 mg PO BEDTIME [facility] Last Admin: 03/25/24 21:10 Dose: 20 mg Documented By: NICK Calcitriol (Calcitriol 0.25 Mcg Capsule) 0.5 mcg PO ISAAC@0900 [facility] Cyclobenzaprine HCl (Cyclobenzaprine Hcl 10 Mg Tablet) 10 mg PO BEDTIME [facility] Last Admin: 03/25/24 21:10 Dose: 10 mg Documented By: NICK Ferrous Sulfate (Ferrous Sulfate 324 Mg Tablet.) 324 mg PO DAILY [facility] Last Admin: 03/26/24 08:10 Dose: 324 mg Documented By: NARCISA Furosemide (Furosemide 40 Mg Tablet) 40 mg PO DAILY [facility]; Protocol Last Admin: 03/26/24 08:10 Dose: 40 mg Documented By: NARCISA Guaifenesin/Dextromethorphan (Guaifenesin Dm 100/10/5 Ml 5 Ml Syrup) 5 ml PO Q4H PRN PRN Reason: cough Heparin Sodium (Porcine) (Heparin Sodium,Porcine 5,000 Unit/Ml Vial) 5,000 unit SUBCUT Q12H [facility] Last Admin: 03/26/24 06:17 Dose: 5,000 unit Documented By: JAMEY Acyclovir Sodium 621.8 mg/ (Sodium Chloride) 112.436 mls @ 112.436 mls/hr IV Q8H [facility] Melatonin (Melatonin 3 Mg Tablet) 6 mg PO BEDTIME PRN PRN Reason: Insomnia Last Admin: 03/26/24 01:43 Dose: 6 mg Documented By: JAMEY Methylprednisolone Sodium Succinate (Methylprednisolone Sod Succ 40 Mg/Ml Vial) 40 mg IVPUSH Q12H [facility] Last Admin: 03/26/24 06:17 Dose: 40 mg Documented By: JAMEY Montelukast Sodium (Montelukast Sodium 10 Mg Tablet) 10 mg PO BEDTIME [facility] Last Admin: 03/25/24 21:10 Dose: 10 mg Documented By: NICK Multivitamins/Vitamin C (Multivitamin Tablet) 1 tab PO DAILY [facility] Last Admin: 03/26/24 08:10 Dose: 1 tab Documented By: NARCISA Ondansetron HCl (Ondansetron Hcl 4 Mg/2 Ml Vial) 4 mg IVPUSH Q8H PRN PRN Reason: Nausea and Vomiting Paroxetine HCl (Paroxetine Hcl 40 Mg Tablet) 40 mg PO BEDTIME [facility] Last Admin: 03/25/24 21:10 Dose: 40 mg Documented By: NICK Sodium Chloride (0.9 % Sodium Chloride Flush 3 Ml Syringe) 3 ml IVFLUSH QSHIFT [facility] Last Admin: 03/26/24 08:10 Dose: 3 ml Documented By: NARCISA Labs 03/24/24 04:40 03/26/24 10:27 Labs: Laboratory Results - last 24 hr 03/26/24 10:27 Anion Gap 18 Estim Creat Clear Calc 24.0 Estimated GFR 31 Random Glucose 212 H Calcium 9.2 Assessment and Plan (1) Herpes zoster: Status: Acute Plan 88-year-old woman admitted for acute hypoxic respiratory failure secondary to COPD exacerbation Herpes zoster, disseminated will change to IV acyclovir ID consult pending continue precautions until lesions crusted over Acute on chronic hypoxic respiratory failure secondary to COPD/asthma exacerbation On home O2 2 L, continue and titrate to keep oxygen saturation greater than 90% No consolidation noted on chest x-ray, flu, COVID and RSV negative Negative V/Q scan chest CT stable ill defined groundglass opacity in RUL (recommend outpatient follow up imaging) wean IV Solu-Medrol, continue scheduled DuoNebs Cough suppressant as needed Heart failure with preserved ejection fraction No exacerbation hold furosemide today follow renal function Normocytic anemia No overt bleeding Continue iron supplementation Mental health Continue home medications Hyperlipidemia Continue statin mild ADWOA on CKD stage 3 Slight trend up in creatinine, we will hold Lasix Gentle IV fluid monitor renal function closely as patient will be on IV antivirals Sleep apnea Not on CPAP, uses oxygen at night Obesity. BMI 32.4 Discussed importance of weight management as this may be contributing to worsening of other comorbidities DVT prophylaxis with heparin Attending Dr. José Full code continue treatment of COPD requiring IV steroids and scheduled DuoNeb treatments. Due to patient's age and other comorbidities she is at high risk for decompensation. also requiring IV antiviral medication Quality Stroke Does the patient have a stroke diagnosis?: No VTE Prior VTE?: No VTE Risk Level:: Medical - moderate - high VTE Device Contraindication: Treatment Not Indicated VTE Drug Contraindication: N/A - Med Ordered
[2024-03-26] MEDS: Lactated Ringers 500 ML 50 ML IV (14:20)
[2024-03-26] MEDS: Magnesium Hydrox/Alum Hydrox 30 ML ORAL.SUSP 15 ML PO (18:29)
[2024-03-26] MEDS: Cyclobenzaprine HCl 10 MG TABLET PO (20:32)
[2024-03-26] MEDS: Montelukast Sodium 10 MG TABLET PO (20:32)
[2024-03-26] MEDS: PARoxetine HCL 40 MG TABLET PO (20:32)
[2024-03-26] MEDS: Atorvastatin Calcium 20 MG TABLET PO (20:32)
--- NOTE | 2024-03-26 22:08 | W.PM.IDCN ---
History of Present Illness Data of Consult Service Date: 03/26/24 Requesting physician: Samantha Aldridge Primary Care Provider: Flynn Lang MD HPI Reason for consult: multiple dermatome zoster She presents with COPD exacerbation shortness of breath. She has no fever or chills. She has shingles not crusted and pain for several days. Review of Systems Review of Systems: Yes all other systems are reviewed and are negative PMFSH Past Medical History Medical History COPD (chronic obstructive pulmonary disease) Acute confusion Pleural effusion Obesity Cataract Chronic kidney disease, stage 3b Anxiety Supplemental oxygen dependent Arthritis Intertrigo Hyperlipidemia CHF (congestive heart failure) Cellulitis Chest pain Chronic respiratory failure COPD (chronic obstructive pulmonary disease) Family History Family History Father Asthma Mother Asthma Family history: reviewed and not pertinent Surgical History Surgical History History of tonsillectomy History of appendectomy History of cataract surgery History of right hip replacement (~2014) History of bilateral knee replacement (~2006) Social History Social History Household Members: Other Household Members Other:: grandchildren Housing: House Do you presently have visiting nurse or other home services: No Alcohol intake: never Patient Tobacco Use Status: Never used Tobacco e-Cigarette/Vaping Use: Never Used Second Hand Smoke Exposure: No Advance Directives Date on File: 10/01/22 service: No Current occupational status: retired Cognitive needs: Yes (walker ) Hearing needs: No Vision needs: Yes (glasses) Meds Allergies Allergy/AdvReac Type Severity Reaction Status Date / Time No Known Allergies Allergy Verified 03/23/24 10:24 Active Medications: Current Medications Acetaminophen (Acetaminophen 325 Mg Tablet) 650 mg PO Q6H PRN PRN Reason: Pain, Mild (Pain Scale 1-3) Last Admin: 03/26/24 00:22 Dose: 650 mg Al Hydroxide/Mg Hydroxide (Magnesium Hydrox/Alum Hydrox 30 Ml Oral.Susp) 15 ml PO Q4H PRN PRN Reason: Heartburn Last Admin: 03/26/24 18:29 Dose: 15 ml Albuterol/Ipratropium (Albuterol/Iprat 2.5/0.5mg 3 Ml Ampul.Neb) 3 ml INHALE RQ4H WHILE AWAKE [facility] Last Admin: 03/26/24 19:16 Dose: 3 ml Atorvastatin Calcium (Atorvastatin Calcium 20 Mg Tablet) 20 mg PO BEDTIME [facility] Last Admin: 03/26/24 20:32 Dose: 20 mg Calcitriol (Calcitriol 0.25 Mcg Capsule) 0.5 mcg PO ISAAC@0900 [facility] Cyclobenzaprine HCl (Cyclobenzaprine Hcl 10 Mg Tablet) 10 mg PO BEDTIME [facility] Last Admin: 03/26/24 20:32 Dose: 10 mg Ferrous Sulfate (Ferrous Sulfate 324 Mg Tablet.Dr) 324 mg PO DAILY [facility] Last Admin: 03/26/24 08:10 Dose: 324 mg Furosemide (Furosemide 40 Mg Tablet) 40 mg PO DAILY [facility]; Protocol Last Admin: 03/26/24 08:10 Dose: 40 mg Guaifenesin/Dextromethorphan (Guaifenesin Dm 100/10/5 Ml 5 Ml Syrup) 5 ml PO Q4H PRN PRN Reason: cough Heparin Sodium (Porcine) (Heparin Sodium,Porcine 5,000 Unit/Ml Vial) 5,000 unit SUBCUT Q12H [facility] Last Admin: 03/26/24 18:30 Dose: 5,000 unit Acyclovir Sodium 621.8 mg/ (Sodium Chloride) 112.436 mls @ 112.436 mls/hr IV Q8H [facility] Last Infusion: 03/26/24 21:41 Dose: Infused Lactated Ringer's (Lr) 500 mls @ 50 mls/hr IV .Q10H [facility] Stop: 03/27/24 00:29 Last Admin: 03/26/24 14:20 Dose: 50 mls/hr Melatonin (Melatonin 3 Mg Tablet) 6 mg PO BEDTIME PRN PRN Reason: Insomnia Last Admin: 03/26/24 01:43 Dose: 6 mg Methylprednisolone Sodium Succinate (Methylprednisolone Sod Succ 40 Mg/Ml Vial) 40 mg IVPUSH Q24H [facility] Last Admin: 03/26/24 14:08 Dose: 40 mg Montelukast Sodium (Montelukast Sodium 10 Mg Tablet) 10 mg PO BEDTIME [facility] Last Admin: 03/26/24 20:32 Dose: 10 mg Multivitamins/Vitamin C (Multivitamin Tablet) 1 tab PO DAILY [facility] Last Admin: 03/26/24 08:10 Dose: 1 tab Ondansetron HCl (Ondansetron Hcl 4 Mg/2 Ml Vial) 4 mg IVPUSH Q8H PRN PRN Reason: Nausea and Vomiting Paroxetine HCl (Paroxetine Hcl 40 Mg Tablet) 40 mg PO BEDTIME [facility] Last Admin: 03/26/24 20:32 Dose: 40 mg Sodium Chloride (0.9 % Sodium Chloride Flush 3 Ml Syringe) 3 ml IVFLUSH QSHIFT [facility] Last Admin: 03/26/24 16:31 Dose: Not Given Home Medications ?Medication ?Instructions ?Recorded ?Confirmed ?Last Taken ?Type calcitriol 0.5 mcg capsule 0.5 mcg PO ISAAC@0900 03/01/22 03/23/24 05/13/23 History ferrous sulfate 325 mg (65 mg 325 mg PO DAILY 03/01/22 03/23/24 05/13/23 History iron) tablet Oxygen Home Use 08/30/22 09/18/23 Unknown History nebulizers 08/30/22 09/18/23 Unknown History [id number] 8 mg-folic 400 1 tab PO DAILY 05/15/23 03/23/24 05/13/23 History mcg-K 50 mcg-lutein 300 mcg tablet (Centrum Silver Women) Physical Exam Vital Signs: Vital Signs: Last Vital Signs Temp 97.8 F 03/26/24 18:52 Pulse 95 03/26/24 19:17 Resp 20 03/26/24 19:17 BP 128/58 L 03/26/24 18:52 Pulse Ox 96 03/26/24 18:52 O2 Del Method Nasal Cannula 03/26/24 18:52 O2 Flow Rate 2 03/26/24 18:52 BMI result Body Mass Index 32.4 Const: General: cooperative HEENT: Head: Yes normal to inspection Face and sinus: Yes normal facial exam Mouth: Normal oral and palatal mucosa present Teeth and gingiva: dentition normal Eyes: General: appearance normal, both eyes and all related structures Pupils: Equal, round and reactive pupils present Resp: Effort & Inspection: normal respiratory effort Cardio: Rate: regular rate Rhythm: regular rhythm GI: Palpation (GI): Soft to palpation and nontender : General: Yes no CVA tenderness Back/Spine/Pelvis: Back: no CVA tenderness Skin: Other: zoster active lesions dermatome C4 crosses midline as well as C5 and C6 and T1 and T2 Neuro: General: moves all extremities Cranial nerves: Yes Equal, round and reactive pupils present Extrem: General: Yes normal to inspection Psych: Appearance: grossly normal Results Labs 03/24/24 04:40 03/26/24 10:27 Labs: BMP 03/26/24 10:27 Sodium 139 Potassium 4.3 Chloride 97 Carbon Dioxide 28 BUN 41 H Creatinine 1.56 H Calcium 9.2 Assessment and Plan (1) Herpes zoster: Status: Acute (2) COPD with acute exacerbation: Status: Acute Plan Multidermatomal zoster Active lesions in several dermatomes Agree respiratory isolation Acyclovir 10 mg per kg every 8 hours. Po when crusting. May use steroids po and topical calamine when healing.
[2024-03-27] VITALS (9 sets, daily range): BP systolic 110–140; BP diastolic 56–68; PULSE 76–101; RESP 16–20; TEMP 36.1–36.3; O2SAT 93–98
[2024-03-27] MEDS: Acetaminophen 325 MG TABLET 650 MG PO (01:51)
[2024-03-27] MEDS: Heparin Sodium,Porcine 5,000 UNIT/ML VIAL 5000 UNIT SUBCUT ×2 (06:20→18:12)
[2024-03-27] MEDS: Albuterol/Iprat 2.5/0.5MG 3 ML AMPUL.NEB INHALE ×4 (07:59→19:39)
[2024-03-27] MEDS: Multivitamin TABLET 1 TAB PO (08:54)
[2024-03-27] MEDS: 0.9 % Sodium Chloride Flush 3 ML SYRINGE IVFLUSH ×3 (08:54→21:18)
[2024-03-27] MEDS: Ferrous Sulfate 324 MG TABLET.DR PO (08:54)
[2024-03-27] MEDS: methylPREDNISolone Sod Succ 40 MG/ML VIAL IVPUSH (12:10)
--- NOTE | 2024-03-27 13:37 | HO.PM.IMPN ---
Subjective Subjective Date of Service: 03/27/24 Interval History: Seen and examined this morning Follow-up for COPD exacerbation, herpes zoster No sob, chest pain. No complaints. No pain. No fever, chills Review of Systems Review of Systems: Yes all other systems are reviewed and are negative Constitutional Constitutional: Denies chills and Denies fever(s) Cardiovascular Cardiovascular: Denies chest pain and Denies palpitations Endocrine Endocrine: Denies palpitations Physical Exam Vital Signs: Vital Signs: Last Vital Signs Temp 97.3 F 03/27/24 07:52 Pulse 76 03/27/24 11:29 Resp 20 03/27/24 11:29 BP 116/61 03/27/24 07:52 Pulse Ox 96 03/27/24 07:52 O2 Del Method Nasal Cannula 03/27/24 07:52 O2 Flow Rate 2 03/27/24 07:52 BMI result Body Mass Index 32.4 Const: General: cooperative, comfortable, alert and awake Nutritional Appearance: overweight Resp: Effort & Inspection: normal respiratory effort, able to speak in complete sentences, no respiratory distress and no use of accessory muscles Cardio: Rate: regular rate GI: Inspection: No distended Palpation (GI): Soft to palpation and nontender Skin: Other: closer picture of chest. No significant change except several crusted lesions left upper back Neuro: General: moves all extremities and CN's II-XI intact bilaterally Objective Data Active Medications Acetaminophen (Acetaminophen 325 Mg Tablet) 650 mg PO Q6H PRN PRN Reason: Pain, Mild (Pain Scale 1-3) Last Admin: 03/27/24 01:51 Dose: 650 mg Documented By: LAURENT Al Hydroxide/Mg Hydroxide (Magnesium Hydrox/Alum Hydrox 30 Ml Oral.Susp) 15 ml PO Q4H PRN PRN Reason: Heartburn Last Admin: 03/26/24 18:29 Dose: 15 ml Documented By: CRISTEL Albuterol/Ipratropium (Albuterol/Iprat 2.5/0.5mg 3 Ml Ampul.Neb) 3 ml INHALE RQ4H WHILE AWAKE [facility] Last Admin: 03/27/24 11:29 Dose: 3 ml Documented By: CHERYL Atorvastatin Calcium (Atorvastatin Calcium 20 Mg Tablet) 20 mg PO BEDTIME [facility] Last Admin: 03/26/24 20:32 Dose: 20 mg Documented By: LASHAUN Calcitriol (Calcitriol 0.25 Mcg Capsule) 0.5 mcg PO ISAAC@0900 [facility] Cyclobenzaprine HCl (Cyclobenzaprine Hcl 10 Mg Tablet) 10 mg PO BEDTIME [facility] Last Admin: 03/26/24 20:32 Dose: 10 mg Documented By: LASHAUN Ferrous Sulfate (Ferrous Sulfate 324 Mg Tablet.) 324 mg PO DAILY [facility] Last Admin: 03/27/24 08:54 Dose: 324 mg Documented By: TATI Furosemide (Furosemide 40 Mg Tablet) 40 mg PO DAILY [facility]; Protocol Last Admin: 03/26/24 08:10 Dose: 40 mg Documented By: NARCISA Guaifenesin/Dextromethorphan (Guaifenesin Dm 100/10/5 Ml 5 Ml Syrup) 5 ml PO Q4H PRN PRN Reason: cough Heparin Sodium (Porcine) (Heparin Sodium,Porcine 5,000 Unit/Ml Vial) 5,000 unit SUBCUT Q12H [facility] Last Admin: 03/27/24 06:20 Dose: 5,000 unit Documented By: LASHAUN Acyclovir Sodium 621.8 mg/ (Sodium Chloride) 112.436 mls @ 112.436 mls/hr IV Q8H [facility] Last Infusion: 03/27/24 12:10 Dose: Infused Documented By: TATI Melatonin (Melatonin 3 Mg Tablet) 6 mg PO BEDTIME PRN PRN Reason: Insomnia Last Admin: 03/26/24 01:43 Dose: 6 mg Documented By: LEANDRAOIC Methylprednisolone Sodium Succinate (Methylprednisolone Sod Succ 40 Mg/Ml Vial) 40 mg IVPUSH Q24H [facility] Last Admin: 03/27/24 12:10 Dose: 40 mg Documented By: TATI Montelukast Sodium (Montelukast Sodium 10 Mg Tablet) 10 mg PO BEDTIME [facility] Last Admin: 03/26/24 20:32 Dose: 10 mg Documented By: LASHAUN Multivitamins/Vitamin C (Multivitamin Tablet) 1 tab PO DAILY [facility] Last Admin: 03/27/24 08:54 Dose: 1 tab Documented By: TATI Ondansetron HCl (Ondansetron Hcl 4 Mg/2 Ml Vial) 4 mg IVPUSH Q8H PRN PRN Reason: Nausea and Vomiting Paroxetine HCl (Paroxetine Hcl 40 Mg Tablet) 40 mg PO BEDTIME [facility] Last Admin: 03/26/24 20:32 Dose: 40 mg Documented By: LASHAUN Sodium Chloride (0.9 % Sodium Chloride Flush 3 Ml Syringe) 3 ml IVFLUSH QSHIFT [facility] Last Admin: 03/27/24 08:54 Dose: 3 ml Documented By: TATI Labs 03/24/24 04:40 03/26/24 10:27 Assessment and Plan (1) Herpes zoster: Status: Acute Plan 88-year-old woman admitted for acute hypoxic respiratory failure secondary to COPD exacerbation Herpes zoster, disseminated Per ID, continue IV acyclovir until lesions fully crusted over. 03/27 several crusted lesions but still has active disease/intact vesicles ID input appreciated continue precautions until lesions crusted over Acute on chronic hypoxic respiratory failure secondary to COPD/asthma exacerbation On home O2 2 L, continue and titrate to keep oxygen saturation greater than 90% No consolidation noted on chest x-ray, flu, COVID and RSV negative Negative V/Q scan chest CT stable ill defined groundglass opacity in RUL (recommend outpatient follow up imaging) wean IV Solu-Medrol- change to po prednisone 03/28 continue scheduled DuoNebs Cough suppressant as needed Heart failure with preserved ejection fraction No exacerbation hold furosemide today follow renal function Normocytic anemia No overt bleeding Continue iron supplementation Mental health Continue home medications Hyperlipidemia Continue statin mild ADWOA on CKD stage 3 Slight trend up in creatinine, we will hold Lasix Gentle IV fluid monitor renal function closely as patient will be on IV antivirals Sleep apnea Not on CPAP, uses oxygen at night Obesity. BMI 32.4 Discussed importance of weight management as this may be contributing to worsening of other comorbidities DVT prophylaxis with heparin Full code continue treatment of COPD requiring IV steroids and scheduled DuoNeb treatments. Due to patient's age and other comorbidities she is at high risk for decompensation. also requiring IV antiviral medication for disseminated zoster Quality Stroke Does the patient have a stroke diagnosis?: No VTE Prior VTE?: No VTE Risk Level:: Medical - moderate - high VTE Device Contraindication: Treatment Not Indicated VTE Drug Contraindication: N/A - Med Ordered
[2024-03-27] MEDS: Atorvastatin Calcium 20 MG TABLET PO (21:17)
[2024-03-27] MEDS: Montelukast Sodium 10 MG TABLET PO (21:17)
[2024-03-27] MEDS: PARoxetine HCL 40 MG TABLET PO (21:18)
[2024-03-27] MEDS: Melatonin 3 MG TABLET 6 MG PO (21:18)
[2024-03-27] MEDS: Magnesium Hydrox/Alum Hydrox 30 ML ORAL.SUSP 15 ML PO (21:18)
[2024-03-27] MEDS: Cyclobenzaprine HCl 10 MG TABLET PO (21:21)
--- NOTE | 2024-03-27 23:33 | PC.NURSE ---
Assumed care of patient at 19:15. Patient is A&Ox4, forgetful at times. Continues on airborne/contact precautions for shingles; on acyclovir. Shingles rash to right chest/shoulder/back of neck. Pt denies pain. Pt here for COPD exacerbation. Pt denies sob. Breathing is even and unlabored without distress on baseline 2L nc. Pt refused offer for assistance to bed, states she sleeps in the chair here like she does at home. Tabs alarm and in room camera in place. Call logan within reach. Patient rings appropriately to make needs known. Handoff report given to oncoming RN at 23:15.
[2024-03-28] VITALS (7 sets, daily range): BP systolic 118–130; BP diastolic 57–62; PULSE 81–96; RESP 17–20; TEMP 36.2–36.6; O2SAT 94–97
[2024-03-28] MEDS: Ferrous Sulfate 324 MG TABLET.DR PO (07:49)
[2024-03-28] MEDS: calcitrioL 0.25 MCG CAPSULE 0.5 MCG PO (07:49)
[2024-03-28] MEDS: Multivitamin TABLET 1 TAB PO (07:49)
[2024-03-28] MEDS: predniSONE 20 MG TABLET 40 MG PO (07:49)
[2024-03-28] MEDS: Heparin Sodium,Porcine 5,000 UNIT/ML VIAL 5000 UNIT SUBCUT ×2 (07:50→18:08)
[2024-03-28] MEDS: 0.9 % Sodium Chloride Flush 3 ML SYRINGE IVFLUSH ×3 (07:50→19:38)
[2024-03-28] MEDS: Albuterol/Iprat 2.5/0.5MG 3 ML AMPUL.NEB INHALE ×4 (07:57→20:08)
--- NOTE | 2024-03-28 08:59 | PC.NURSE ---
unable to place new IV by this marketing underwriter. Primary RN notified.
[2024-03-28 13:52] LABS: Hematocrit 38.6 % (37.0-47.0); Imm Gran Abs Auto 0.03 X10*3/uL (0.00-0.03); Imm Gran Pct Auto 0.4 % (0.0-0.4); Lymphocytes Absolute Auto 0.6 X10*3/uL (1.2-4.9); MANUAL DIFF FLAG SCAN; Mean Corpuscular HGB Conc 31.1 g/dl (31.0-35.0); Mean Corpuscular Hemoglobin 29.5 pg (27.0-33.0); Mean Corpuscular Volume 94.8 fL (80.0-98.0); Mean Platelet Volume 9.2 fL (9.4-12.3); Monocytes Absolute Auto 0.1 X10*3/uL (0.1-1.2); Monocytes Percent Auto 1.4 % (2-11); Neutrophils Absolute Auto 6.2 x10*3/uL (2.0-8.3); Neutrophils Percent Auto 90.2 % (45-73); Platelet Count 182 X10*3/uL (160-400); Red Blood Count 4.07 X10*6/uL (4.20-5.50); Red Cell Distribution Width 13.7 % (11.0-16.0); SCAN SMEAR FLAG 1; White Blood Count 6.9 X10*3/uL (4.8-10.8)
[2024-03-28 14:17] LABS: Anion Gap 14 (12-20); Blood Urea Nitrogen 38 mg/dL (9-16); Carbon Dioxide 30 mmol/L (22-29); Chloride 102 mmol/L (96-108); Creatinine Clr Calc Pharmacy 24.4; Estimated Glomerular Filt Rate 32; Glucose Random 232 mg/dL (60-115); Potassium 5.3 mmol/L (3.3-5.1); Sodium 141 mmol/L (135-145)
[2024-03-28 14:20] LABS: SLIDE REVIEW VERIFIED
--- NOTE | 2024-03-28 15:32 | P.PNIM_ITS ---
Subjective Subjective Date of Service: 03/28/24 Interval History: Seen and examined this morning Follow-up for COPD exacerbation, herpes zoster No sob, chest pain. No complaints. No pain. No fever, chills Review of Systems Review of Systems: Yes all other systems are reviewed and are negative Constitutional Constitutional: Denies chills and Denies fever(s) Cardiovascular Cardiovascular: Denies chest pain and Denies palpitations Endocrine Endocrine: Denies palpitations Physical Exam 2 Vital Signs: Vital Signs: Last Vital Signs Temp 97.8 F 03/28/24 15:09 Pulse 87 03/28/24 15:12 Resp 20 03/28/24 15:12 BP 123/58 L 03/28/24 15:09 Pulse Ox 94 03/28/24 15:09 O2 Del Method Nasal Cannula 03/28/24 15:09 O2 Flow Rate 2 03/28/24 15:09 BMI result Body Mass Index 32.4 Constitutional - Awake and Alert, No apparent distress Eyes - PERRLA, EOMI Cardiovascular - S1S2, RRR, No edema Respiratory - Normal lung expansion, Normal respiratory effort, No respiratory distress, CTA bilaterally Extremities - no calf tenderness bilaterally, no swelling Skin - Warm/Dry. Dry/scabbed lesions on erythematous base across upper back, R shoulder, and upp chest. Still with active vesicles of T1-T2 dermatome R anterior chest Neurological - Alert & oriented x3 Psychological - Appropriate affect Objective Data Active Medications Acetaminophen (Acetaminophen 325 Mg Tablet) 650 mg PO Q6H PRN PRN Reason: Pain, Mild (Pain Scale 1-3) Last Admin: 03/27/24 01:51 Dose: 650 mg Documented By: LAURENT Al Hydroxide/Mg Hydroxide (Magnesium Hydrox/Alum Hydrox 30 Ml Oral.Susp) 15 ml PO Q4H PRN PRN Reason: Heartburn Last Admin: 03/27/24 21:18 Dose: 15 ml Documented By: BALJIT Albuterol/Ipratropium (Albuterol/Iprat 2.5/0.5mg 3 Ml Ampul.Neb) 3 ml INHALE RQ4H WHILE AWAKE [facility] Last Admin: 03/28/24 15:12 Dose: 3 ml Documented By: DANITZA Atorvastatin Calcium (Atorvastatin Calcium 20 Mg Tablet) 20 mg PO BEDTIME [facility] Last Admin: 03/27/24 21:17 Dose: 20 mg Documented By: BALJIT Calcitriol (Calcitriol 0.25 Mcg Capsule) 0.5 mcg PO ISAAC@0900 [facility] Last Admin: 03/28/24 07:49 Dose: 0.5 mcg Documented By: TATI Cyclobenzaprine HCl (Cyclobenzaprine Hcl 10 Mg Tablet) 10 mg PO BEDTIME [facility] Last Admin: 03/27/24 21:21 Dose: 10 mg Documented By: BALJIT Ferrous Sulfate (Ferrous Sulfate 324 Mg Tablet.Dr) 324 mg PO DAILY [facility] Last Admin: 03/28/24 07:49 Dose: 324 mg Documented By: TATI Furosemide (Furosemide 40 Mg Tablet) 40 mg PO DAILY [facility]; Protocol Last Admin: 03/26/24 08:10 Dose: 40 mg Documented By: NARCISA Guaifenesin/Dextromethorphan (Guaifenesin Dm 100/10/5 Ml 5 Ml Syrup) 5 ml PO Q4H PRN PRN Reason: cough Heparin Sodium (Porcine) (Heparin Sodium,Porcine 5,000 Unit/Ml Vial) 5,000 unit SUBCUT Q12H [facility] Last Admin: 03/28/24 07:50 Dose: 5,000 unit Documented By: TATI Acyclovir Sodium 621.8 mg/ (Sodium Chloride) 112.436 mls @ 112.436 mls/hr IV Q8H [facility] Last Infusion: 03/28/24 13:06 Dose: Infused Documented By: TATI Melatonin (Melatonin 3 Mg Tablet) 6 mg PO BEDTIME PRN PRN Reason: Insomnia Last Admin: 03/27/24 21:18 Dose: 6 mg Documented By: BALJIT Montelukast Sodium (Montelukast Sodium 10 Mg Tablet) 10 mg PO BEDTIME [facility] Last Admin: 03/27/24 21:17 Dose: 10 mg Documented By: BALJIT Multivitamins/Vitamin C (Multivitamin Tablet) 1 tab PO DAILY [facility] Last Admin: 03/28/24 07:49 Dose: 1 tab Documented By: TATI Ondansetron HCl (Ondansetron Hcl 4 Mg/2 Ml Vial) 4 mg IVPUSH Q8H PRN PRN Reason: Nausea and Vomiting Paroxetine HCl (Paroxetine Hcl 40 Mg Tablet) 40 mg PO BEDTIME [facility] Last Admin: 03/27/24 21:18 Dose: 40 mg Documented By: BALJIT Prednisone (Prednisone 20 Mg Tablet) 40 mg PO DAILY [facility] Last Admin: 03/28/24 07:49 Dose: 40 mg Documented By: TATI Sodium Chloride (0.9 % Sodium Chloride Flush 3 Ml Syringe) 3 ml IVFLUSH QSHIFT [facility] Last Admin: 03/28/24 07:50 Dose: 3 ml Documented By: TATI Labs 03/28/24 13:42 03/28/24 13:42 Labs: Laboratory Results - last 24 hr 03/28/24 13:42 MCV 94.8 MCH 29.5 MCHC 31.1 RDW 13.7 Plt Count 182 MPV 9.2 L Immature Gran % (Auto) 0.4 Neut % (Auto) 90.2 H Lymph % (Auto) 8.0 L Whitman % (Auto) 1.4 L Eos % (Auto) 0.0 Baso % (Auto) 0.0 Lymph # (Auto) 0.6 L Whitman # (Auto) 0.1 Eos # (Auto) 0.0 Baso # (Auto) 0.0 Abs Immat Gran (auto) 0.03 Absolute Neuts (auto) 6.2 Absolute Nucleated RBC 0.000 Nucleated RBC % (auto) 0.0 Smear Tech's Comments VERIFIED Anion Gap 14 Estim Creat Clear Calc 24.4 Estimated GFR 32 Random Glucose 232 H Calcium 9.0 Assessment and Plan (1) Herpes zoster: Status: Acute Plan 88-year-old woman admitted for acute hypoxic respiratory failure secondary to COPD exacerbation Herpes zoster, disseminated Per ID, continue IV acyclovir until lesions fully crusted over. 03/28 several crusted lesions but still has active disease/intact vesicles R anterior chest in T1-T2 dermatome ID input appreciated continue precautions until lesions crusted over Acute on chronic hypoxic respiratory failure secondary to COPD/asthma exacerbation On home O2 2 L, continue and titrate to keep oxygen saturation greater than 90% No consolidation noted on chest x-ray, flu, COVID and RSV negative Negative V/Q scan chest CT stable ill defined groundglass opacity in RUL (recommend outpatient follow up imaging) wean IV Solu-Medrol- change to po prednisone 03/28 continue scheduled DuoNebs Cough suppressant as needed Heart failure with preserved ejection fraction No exacerbation hold furosemide today follow renal function Normocytic anemia No overt bleeding Continue iron supplementation Mental health Continue home medications Hyperlipidemia Continue statin mild ADWOA on CKD stage 3 Slight trend up in creatinine, we will hold Lasix Gentle IV fluid monitor renal function closely as patient will be on IV antivirals Sleep apnea Not on CPAP, uses oxygen at night Obesity. BMI 32.4 Discussed importance of weight management as this may be contributing to worsening of other comorbidities DVT prophylaxis with heparin Full code continue treatment of IV antiviral medication for disseminated zoster still with active vesicles of T1-T2 dermatome Quality Stroke Does the patient have a stroke diagnosis?: No VTE Prior VTE?: No VTE Risk Level:: Medical - moderate - high VTE Device Contraindication: Treatment Not Indicated VTE Drug Contraindication: N/A - Med Ordered
[2024-03-28] MEDS: Montelukast Sodium 10 MG TABLET PO (20:34)
[2024-03-28] MEDS: Atorvastatin Calcium 20 MG TABLET PO (20:34)
[2024-03-28] MEDS: Cyclobenzaprine HCl 10 MG TABLET PO (20:34)
[2024-03-28] MEDS: Melatonin 3 MG TABLET 6 MG PO (20:34)
[2024-03-28] MEDS: PARoxetine HCL 40 MG TABLET PO (20:35)
[2024-03-29] MEDS: Acetaminophen 325 MG TABLET 650 MG PO ×2 (02:10→07:51)
[2024-03-29 04:00] VITALS: BP 122/60; PULSE 74; RESP 16; TEMP 36.3; O2SAT 96
[2024-03-29] MEDS: Heparin Sodium,Porcine 5,000 UNIT/ML VIAL 5000 UNIT SUBCUT (05:42)
[2024-03-29 07:14] VITALS: BP 122/60; PULSE 78; RESP 18; TEMP 36.1; O2SAT 95
[2024-03-29 07:36] VITALS: PULSE 78; RESP 18; O2SAT 95
[2024-03-29] MEDS: Albuterol/Iprat 2.5/0.5MG 3 ML AMPUL.NEB INHALE ×2 (07:36→11:27)
[2024-03-29] MEDS: Multivitamin TABLET 1 TAB PO (07:51)
[2024-03-29] MEDS: Ferrous Sulfate 324 MG TABLET.DR PO (07:51)
[2024-03-29] MEDS: 0.9 % Sodium Chloride Flush 3 ML SYRINGE IVFLUSH (07:52)
[2024-03-29] MEDS: predniSONE 20 MG TABLET 40 MG PO (07:52)
[2024-03-29 11:03] LABS: Immunoglobulin M 219 mg/dL (50-300)
--- NOTE | 2024-03-29 11:13 | PM.DS ---
DS: Providers Provider Date of Service: 03/29/24 Date of admission: 03/23/24 18:40 Primary care physician: Flynn Lang MD Consults: 03/24/24 16:48 Consult to Infectious Diseases Routine Consulting Provider: [facility] [place] Infectious Disease Reason for consultation: shingles DS: Diagnosis Discharge Diagnosis (1) Herpes zoster: Status: Acute DS: Summary Hospital Course Hospital Course: 88-year-old woman with a history of chronic respiratory failure on home O2 2 L presented to the ER with complaints of worsening shortness of breath over the last 4 days. She reported that initially started with chest pain radiating to her back and then she started getting more shortness of breath especially with ambulation. She reports that she is pretty independent, she still drives and she has not been feeling well recently. She denies recent illness, travel, sick contacts, fever, chills, nausea, vomiting, diarrhea. In the ER, chest x-ray was negative for consolidation or effusion. Flu, COVID and RSV negative. She was hypoxic to 88%, labs all within acceptable limits. Patient was given a dose of IV Solu-Medrol, doxycycline, albuterol, magnesium. She will be admitted for further management of acute on chronic hypoxic respiratory failure secondary to COPD exacerbation. 88-year-old woman treated for acute on chronic hypoxic respiratory failure secondary to COPD/asthma exacerbation and herpes zoster. Patient was treated with scheduled Solu-Medrol, DuoNeb treatments. Since transition to oral prednisone and she will continue 4 more days at home. She is on 2 L of oxygen at home baseline. No consolidation noted on chest x-ray, negative flu, COVID and RSV. At this time patient is at baseline with her respiratory status. She was found to have several vesicle like lesions on T1-T2 dermatome with no pain or pruritus. She was started on acyclovir IV on 03/25/2024. Lesions have crusted over and plan is to discharge patient with oral acyclovir treatment of total 10 days. Patient is in agreement with this in the plan will be to discharged home. Heart failure with preserved ejection fraction. No exacerbation during hospitalization. Continue home medications Mental health. Continue home medications Hyperlipidemia. Continue statin Mild ADWOA on CKD stage 3. Slight increase to creatinine, Lasix was held, given gentle IV fluids. Sleep apnea. Not on CPAP at night, uses 2 L of oxygen Obesity. BMI 32.4. Discussed importance of weight management as this may be contributing to worsening of other comorbidities Time Attestation Discharge Coordination Time (in mins): 35 Quality: Safe Use of Opioids Does Pt have an Active Cancer Diagnosis on the Problem List?: No Quality: Stroke Does the patient have a stroke diagnosis?: No Physical Exam Vital Signs: Vital Signs: Last Vital Signs Temp 97.0 F 03/29/24 07:14 Pulse 78 03/29/24 07:36 Resp 18 03/29/24 07:36 BP 122/60 03/29/24 07:14 Pulse Ox 95 03/29/24 07:14 O2 Del Method Nasal Cannula 03/29/24 07:14 O2 Flow Rate 2 03/29/24 07:14 BMI result Body Mass Index 32.4 Appearing in no acute distress head is normocephalic atraumatic eyes pupils are PERRLA sclera is anicteric mouth throat mucous membranes are intact and moist neck is supple no lymphadenopathy, no JVD noted lung sounds are clear to auscultation heart regular rate rhythm, clear S1, S2 positive bowel sounds, abdomen is soft, nontender neuro patient is alert x3, no focal deficits DS: Data Data Completed and Pending Labs on day of discharge: Laboratory Results - last 24 hr 03/24/24 03/28/24 19:13 13:42 WBC 6.9 RBC 4.07 L Hgb 12.0 Hct 38.6 MCV 94.8 MCH 29.5 MCHC 31.1 RDW 13.7 Plt Count 182 MPV 9.2 L Immature Gran % (Auto) 0.4 Neut % (Auto) 90.2 H Lymph % (Auto) 8.0 L Vernon % (Auto) 1.4 L Eos % (Auto) 0.0 Baso % (Auto) 0.0 Lymph # (Auto) 0.6 L Vernon # (Auto) 0.1 Eos # (Auto) 0.0 Baso # (Auto) 0.0 Abs Immat Gran (auto) 0.03 Absolute Neuts (auto) 6.2 Absolute Nucleated RBC 0.000 Nucleated RBC % (auto) 0.0 Smear Tech's Comments VERIFIED Sodium 141 Potassium 5.3 H D Chloride 102 Carbon Dioxide 30 H Anion Gap 14 BUN 38 H Creatinine 1.53 H Estim Creat Clear Calc 24.4 Estimated GFR 32 Random Glucose 232 H Calcium 9.0 IgM 219 Discharge Plan Discharge Anticipated Discharge Date/Time: 03/29/24 11:02 Patient Disposition: Home Health Service Discharge Diagnosis: Acute on chronic hypoxic respiratory failure secondary to COPD exacerbation Herpes Zoster Referrals: Yeimi DELATORRE [Outside] - 3-5 Days (Yeimi CRISTOBALA will call you to schedule physical therapy appointments in the home) Flynn Lang MD [Primary Care Provider] - 1 Week Discharge Medications: New acyclovir 800 mg tablet 800 mg PO 5XD Qty: 20 0RF Rx Instructions: space evenly during waking hours prednisone 20 mg Tablet 40 mg PO DAILY Qty: 8 0RF Continued furosemide 40 mg tablet 40 mg PO DAILY Qty: 90 8RF simvastatin 40 mg tablet 40 mg PO BEDTIME Qty: 90 8RF paroxetine HCl 40 mg tablet 40 mg PO BEDTIME Qty: 90 8RF budesonide 0.5 mg/2 mL suspension for nebulization 0.5 mg inhalation BID Qty: 60 11RF ipratropium-albuterol 0.5 mg-3 mg(2.5 mg base)/3 mL solution for nebulization 3 ml inhalation QID Qty: 120 11RF Centrum Silver Women 8 mg iron-400 mcg-300 mcg Tablet 1 tab PO DAILY cyclobenzaprine 10 mg tablet 10 mg PO BEDTIME Qty: 14 0RF calcitriol 0.5 mcg capsule 0.5 mcg PO ISAAC@0900 ferrous sulfate 325 mg (65 mg iron) tablet 325 mg PO DAILY Rx Instructions: with breakfast (DME) nebulizers Misc See Rx Instructions .Route Rx Instructions: As directed (DME) Oxygen Home Use Kit See Rx Instructions .Route Rx Instructions: As directed montelukast [Singulair] 10 mg tablet 10 mg PO BEDTIME 30 Days Qty: 30 11RF Discharge Orders: Discharge Order (Routine); Ordered 03/29/24 Ordered By: Mena Smith Diet: Advance to usual diet Activity on Discharge: As tolerated Stand Alone Forms: Patient Portal Discharge page Print Language: Egyptian Care Plan Goals: Complete course of antibiotics for herpes zoster Preventing the spread from zoster Keep rash covered. ? Avoid touching or scratching the rash. ? Wash hands often, particularly after contact with the rash. ? Until crusting, avoid contact with high-risk persons who are not immune to varicella, infants <1 year of age, immunocompromised persons (such as persons receiving immunosuppressive medications or undergoing chemotherapy, organ transplant recipients, and people with HIV infection). Health Concerns: Acute on chronic hypoxic respiratory failure secondary to COPD exacerbation Herpes zoster Plan of Treatment: Follow-up with primary care provider as needed Take all medications as prescribed Assessment: Discharge summary
[2024-03-29 11:27] VITALS: PULSE 78; RESP 18
--- NOTE | 2024-03-29 12:57 | MHC.CM.PN ---
Addendum entered by Brianda Vazquez RN 03/29/24 14:46: PT rec home w/ services. Patient prefers [facility], who has accepted. medically cleared for dc home w/ new [facility]. Son to transport at ~1515. RN aware. Original Note: EMR reviewed. Per MD rounds patient potential dc today - home self care. CM met with patient who reports son can provide transport if dc'd. IMM delivered. CM will continue to follow.
[2024-03-29 13:34] LABS: Anion Gap 14 (12-20); Blood Urea Nitrogen 37 mg/dL (9-16); Calcium 9.1 mg/dL (8.4-10.2); Carbon Dioxide 31 mmol/L (22-29); Chloride 102 mmol/L (96-108); Creatinine Clr Calc Pharmacy 24.1; Estimated Glomerular Filt Rate 31; Glucose Random 201 mg/dL (60-115); Sodium 142 mmol/L (135-145)
--- NOTE | 2024-03-29 14:30 | P.F2F_ITS ---
Service Date Service Date: 03/29/24 Encounter Date of encounter: 03/29/24 Reasons for Services Signs and symptoms assessed: COPD exacerbation Shingles Reason for physical therapy: home safety and mobility Homebound: Leaving the home is medically contraindicated at this time without the asist of a device and/or another person due th the listed conditions above and below. Reason homebound: unsteady gait / fall risk Certification: Based on the above findings, I certify that this patient is confined to the home and needs intermittent senior care care, physical therapy and/or speech therapy, or continues to need occupational therapy. The patient is under my care, and I have initiated the establishment of the plan of care. The patient will be followed by a physician who will periodically review the plan of care. Time Spent With Patient Time: Total time managing care of this patient today ____ minutes.
== END 2024-03-29 15:32 | disposition home health service (06) | DRG 190 ==
LOC: HO.ED 18:17 → HO.EDOVER 18:42 → HO.S3 03-24 13:00
PROVIDERS: Physician Assistant; Physician Assistant Medical; Admitting Provider Nurse Practitioner Acute Care; Emergency Provider Emergency Medicine; PCP Internal Medicine; Visit Provider Nurse Practitioner Acute Care
DX: J44.1 Chronic obstructive pulmonary disease with (acute) exacerbation (principal); J96.21 Acute and chronic respiratory failure with hypoxia; I50.32 Chronic diastolic (congestive) heart failure; J45.901 Unspecified asthma with (acute) exacerbation; N17.9 Acute kidney failure, unspecified; B02.7 Disseminated zoster; F39 Unspecified mood [affective] disorder; N18.32 Chronic kidney disease, stage 3b; E78.5 Hyperlipidemia, unspecified; D63.1 Anemia in chronic kidney disease; G47.30 Sleep apnea, unspecified; E66.9 Obesity, unspecified; Z68.32 Body mass index [BMI] 32.0-32.9, adult; Z99.81 Dependence on supplemental oxygen; Z79.899 Other long term (current) drug therapy
CPT/HCPCS: 36415; 71045; 71046; 71250; 78580; 80048; 80053; 81001; 82784; 83880; 84484; 85025; 85379; 85610; 85730; 93005; 94640; 97161; 99285; A9540; J0133; J1644; J2919; J3475; J7120

== ENCOUNTER → 2024-03-23 10:19 | Outpatient (BNV) | payer MEDICARE, OTHER, SELFPAY | PROVIDERS: Emergency Provider Emergency Medicine; PCP Internal Medicine; Visit Provider Internal Medicine Cardiovascular Disease | DX: R94.31 Abnormal electrocardiogram [ECG] [EKG] (principal) | CPT/HCPCS: 93010 ==

== ENCOUNTER → 2024-03-23 18:40 | Outpatient (BNV) | payer MEDICARE, OTHER, SELFPAY | PROVIDERS: Admitting Provider Nurse Practitioner Acute Care; Emergency Provider Emergency Medicine; PCP Internal Medicine; Visit Provider Nurse Practitioner Acute Care | DX: B02.9 Zoster without complications (principal) | CPT/HCPCS: 99223; 99232; 99233; 99239; G0180 ==

== ENCOUNTER → 2024-03-23 18:40 | Outpatient (BNV) | payer MEDICARE, OTHER, SELFPAY | PROVIDERS: Admitting Provider Nurse Practitioner Acute Care; Emergency Provider Emergency Medicine; PCP Internal Medicine; Visit Provider Internal Medicine | DX: B02.9 Zoster without complications (principal); J44.1 Chronic obstructive pulmonary disease with (acute) exacerbation | CPT/HCPCS: 99222 ==

== ENCOUNTER 2024-05-10 09:57 | Outpatient (AMB) | payer MEDICARE, OTHER, SELFPAY ==
--- NOTE | 2024-05-10 11:09 | MHC.OFFWIV ---
Intake Vital Signs 05/10/24 11:10 Weight 174 lb BP 130/80 Blood Pressure Location Lt brachial Position Sitting Pulse 62 Pulse Source Pulse Oximeter Pulse Oximetry (%) 94 Oxygen Delivery Method Nasal Cannula Intake Visit Reasons: EP rt shoulder pain/rash Intake Note: Patient here for right shoulder pain/rash, pt states she had shingles in March. would like to know if can go back on prednisone. Patient Tobacco Use Status: Never used Tobacco Allergies No Known Allergies Allergy (Verified 05/10/24 11:13) Medication List - Last Reconciled 05/10/24 by Olga Espinoza MD acyclovir 800 mg PO 5XD budesonide 0.5 mg (2 mL) inhalation BID calcitriol 0.5 mcg PO ISAAC@0900 cyclobenzaprine 10 mg PO BEDTIME ferrous sulfate 325 mg PO DAILY furosemide 40 mg PO DAILY ipratropium-albuterol 0.5 mg-3 mg(2.5 mg base)/3 mL 3 mL inhalation QID montelukast (Singulair) 10 mg PO BEDTIME 30 days [id number]-vit K-lut 8 mg iron-400 mcg-50 mcg (Centrum Silver Women) 1 tab PO DAILY nebulizers As directed Oxygen Home Use As directed paroxetine HCl 40 mg PO BEDTIME prednisone 40 mg (2 x 20 mg) PO DAILY simvastatin 40 mg PO BEDTIME tramadol 50 mg PO Q8H PRN Do you need a note to return to daycare/school/sports/work: No HPI EP rt shoulder pain/rash HPI Details Patient is 88-year-old female who had shingles few days ago She was treated, rash is getting better but the pain is not Patient says that she was given tramadol which is not touching it On examination her shingles rash on her right shoulder L 1 L2 is healing But sensitive to touch I have sent lidocaine 5% patches Patient may change 1 every 12 hour. Patient was advised to machine operator hop picker 4% patches they are [id number], just in case if her insurance does not cover 5% PFSH Medical History COPD (chronic obstructive pulmonary disease) Acute confusion Pleural effusion Obesity Cataract Chronic kidney disease, stage 3b Anxiety Supplemental oxygen dependent Arthritis Intertrigo Hyperlipidemia CHF (congestive heart failure) Cellulitis Chest pain Chronic respiratory failure COPD (chronic obstructive pulmonary disease) Surgical History History of tonsillectomy History of appendectomy History of cataract surgery History of right hip replacement (~2014) History of bilateral knee replacement (~2006) Family History Father Asthma Mother Asthma Social History Household Members: Other Household Members Other:: grandchildren Housing: House Do you presently have visiting nurse or other home services: No Alcohol intake: never Patient Tobacco Use Status: Never used Tobacco e-Cigarette/Vaping Use: Never Used Second Hand Smoke Exposure: No Advance Directives Date on File: 10/01/22 service: No Current occupational status: retired Cognitive needs: Yes (walker ) Hearing needs: No Vision needs: Yes (glasses) Review of Systems Const All systems reviewed & are unremarkable except as noted in HPI and below Physical Exam Vital Signs: Last Vital Signs Pulse 62 05/10/24 11:10 BP 130/80 05/10/24 11:10 Pulse Ox 94 05/10/24 11:10 Oxygen Delivery Method Nasal Cannula 05/10/24 11:10 Const General: no acute distress Orientation/consciousness: patient oriented x3 Eyes General: appearance normal, both eyes and all related structures Resp Effort & Inspection: normal respiratory effort and able to speak in complete sentences Skin Full body images: 1. Shingles rash healing Neuro General: patient oriented x3 Psych Mental Status: mental status grossly normal Assessment & Plan Assessment & Plan (1) Post herpetic neuralgia: Code(s): B02.29 - Other postherpetic nervous system involvement Plan Patient is 88-year-old female who had shingles few days ago She was treated, rash is getting better but the pain is not Patient says that she was given tramadol which is not touching it On examination her shingles rash on her right shoulder L 1 L2 is healing But sensitive to touch I have sent lidocaine 5% patches Patient may change 1 every 12 hour. Patient was advised to machine operator hop picker 4% patches they are [id number], just in case if her insurance does not cover 5% Medications: New lidocaine 5% leave on most painful area for up to 12 hrs 1 patch topical BID 60 ea 0RF 30 days B02.29 - Other postherpetic nervous system involvement Coding Level of Care Code Est Pt Level 3 (97109) Diagnoses Post herpetic neuralgia B02.29
[2024-05-10 11:10] VITALS: BP 130/80; PULSE 62; O2SAT 94
== END 2024-05-10 11:46 | disposition home or self-care (01) ==
PROVIDERS: PCP Internal Medicine; Visit Provider Internal Medicine
DX: B02.29 Other postherpetic nervous system involvement (principal)
CPT/HCPCS: 99213

== ENCOUNTER 2024-06-24 09:35 | Outpatient (AMB) | payer MEDICARE, OTHER, SELFPAY ==
--- NOTE | 2024-06-24 09:37 | A.OFFPC_ITS ---
Vital Signs 06/24/24 09:38 Height 5 ft 2 in Weight 173 lb BMI 31.6 BP 130/82 Blood Pressure Location Lt brachial Position Sitting Pulse 89 Pulse Source Pulse Oximeter Pulse Oximetry (%) 93 Oxygen Delivery Method Nasal Cannula Intake Visit Reasons: follow up Credit Collections Manager Required: No Accompanied by: Daughter Allergies No Known Allergies Allergy (Verified 06/24/24 09:41) Tobacco use date assessed: 06/24/24 Fall risk assessment: 2 + Falls in past year Last assessed Fall Risk: 06/24/24 Dental Screening Dental Screen Date: 06/24/24 Did you have a dental visit in the last 12 months?: Yes Did you have a dental problem in the last 6 months where you did not have access to dental care?: No Was dental information given to patient?: Patient has dentist HPI follow up HPI Details hyperlipidemia and COPD and post herpetic neuralgia; sees pulmonary and on . compliant with meds; pain improving PFSH Medical History COPD (chronic obstructive pulmonary disease) Acute confusion Pleural effusion Obesity Cataract Chronic kidney disease, stage 3b Anxiety Supplemental oxygen dependent Arthritis Intertrigo Hyperlipidemia CHF (congestive heart failure) Cellulitis Chest pain Chronic respiratory failure COPD (chronic obstructive pulmonary disease) Surgical History History of tonsillectomy History of appendectomy History of cataract surgery History of right hip replacement (~2014) History of bilateral knee replacement (~2006) Family History Father Asthma Mother Asthma Social History Household Members: Other Household Members Other:: grandchildren Housing: House Do you presently have visiting nurse or other home services: No Alcohol intake: never Patient Tobacco Use Status: Never used Tobacco e-Cigarette/Vaping Use: Never Used Second Hand Smoke Exposure: No Advance Directives Date on File: 10/01/22 service: No Current occupational status: retired Cognitive needs: Yes (walker ) Hearing needs: No Vision needs: Yes (glasses) Questionnaire PHQ-9 Over the last 2 weeks, how often have you been bothered by any of the following problems? 1. Little interest or pleasure in doing things: not at all 2. Feeling down, depressed, or hopeless: not at all 3. Trouble falling or staying asleep, or sleeping too much: not at all 4. Feeling tired or having little energy: not at all 5. Poor appetite or overeating: not at all 6. Feeling bad about yourself - or that you are a failure or have let yourself or your family down: not at all 7. Trouble concentrating on things, such as reading the newspaper or watching television: not at all 8. Moving or speaking so slowly that other people could have noticed. Or the opposite - being so fidgety or restless that you have been moving around a lot more than usual: not at all 9. Thoughts that you would be better off or of hurting yourself in some way: not at all Total score: 0 Source: Developed by Drs. Johnny Arana, Moon Fong, Misael Shaw and colleagues, with an educational familia from [employer]. Thrive Questionnaire Date Thrive assessed: 06/24/24 I am a: Patient What is your living situation today?: I have a steady place to live Within the past 12 months, did the food you bought not last and you didn't have the money to get more?: Never true Within the past 12 months, did you worry whether your food would run out before you got money to buy more?: Never true Do you have trouble paying for medicines?: No Do you have trouble getting transportation to medical appointments?: No Do you have trouble paying your heating and electricity bill?: No Do you have trouble taking care of your child, family member or friend?: No Do you have trouble with day-to-day activities such as bathing, preparing meals, shopping, managing finances, etc.?: Yes Are you currently unemployed and looking for a job?: No Are you interested in more education?: No Please select the resources that you would like help with: None Currently or been in a relationship where the following occur: No concerns reported THRIVE Score: 0 AUDIT C Alcohol Use Questionnaire (AUDIT-C) 1. How often do you have a drink containing alcohol?: Never Total Score: 0 KATIUSKA-7 AMB Questionnaire KATIUSKA-7 Date KATIUSKA - 7 assessed: 06/24/24 Feeling nervous, anxious, or on edge: 0 = Not at all Not being able to stop or control worryin = Not at all Worrying too much about different things: 0 = Not at all Trouble relaxin = Not at all Being so restless that it is hard to sit still: 0 = Not at all Becoming easily annoyed or irritable: 0 = Not at all Feeling afraid as if something awful might happen: 0 = Not at all Total KATIUSKA-7 score (0-4 normal; 5-9 mild; 10-14 moderate; 15-21 severe): 0 Source: Developed by Drs. Johnny Arana, Moon Fong, Misael Shaw and colleagues, with an educational familia from [employer]. Review of Systems Const Denies chills, Denies headache(s) and Denies weight loss ENT Denies headache(s) Card Denies chest pain, Denies syncope, Denies irregular heart rhythm and Denies dyspnea Resp Denies chest congestion, Denies cough and Denies dyspnea GI Denies abdominal pain, Denies change in stool character, Denies nausea and Denies vomiting Musc Denies deformity and Denies joint swelling Neuro Denies syncope and Denies headache(s) Physical exam (Primary Care) Vital Signs: Last Vital Signs Pulse 89 06/24/24 09:38 BP 130/82 06/24/24 09:38 Pulse Ox 93 06/24/24 09:38 Oxygen Delivery Method Nasal Cannula 06/24/24 09:38 BMI result Body Mass Index 31.6 Tobacco/Smoking Status: Tobacco use Status Tobacco use date assessed 06/24/24 06/24/24 09:46 Patient Tobacco Use Status Never used Tobacco 06/24/24 09:46 e-Cigarette/Vaping Use Never Used 06/24/24 09:46 PHQ-9: PHQ-9 Score PHQ-9: Total score 0 06/24/24 09:49 Thrive Assessment: Date of Thrive Assessment Date Thrive assessed 06/24/24 06/24/24 09:46 Currently or been in a relationship where the following occur: No concerns reported Const General: cooperative, comfortable, no acute distress and alert Neck Neck: Yes no lymphadenopathy Thyroid: Thyroid normal Resp Effort & Inspection: normal respiratory effort Auscultation: clear to auscultation bilaterally Percussion: percussion normal Cardio Jugular venous distension: no JVD Palpation: normal PMI Rate: regular rate Rhythm: regular rhythm Heart sounds: S1 normal heart sound present and S2 normal heart sound present GI Inspection: Yes normal to inspection Palpation (GI): No hepatosplenomegaly present Skin General skin exam: no rashes or lesions noted Extrem General: Yes no clubbing, cyanosis or edema Assessment and Plan Assessment & Plan (1) Post herpetic neuralgia: Code(s): B02.29 - Other postherpetic nervous system involvement Plan: stable; cont same rx (2) COPD (chronic obstructive pulmonary disease): Code(s): J44.9 - Chronic obstructive pulmonary disease, unspecified Qualifiers: COPD type: chronic bronchitis Chronic bronchitis type: simple Qualified Code(s): J41.0 - Simple chronic bronchitis Plan: stable; as per pulm (3) Hyperlipidemia: Code(s): E78.5 - Hyperlipidemia, unspecified Plan: stable; same meds; due for labs Orders: Orders Complete Blood Count Auto Diff 06/24/24 Z13.0 - Encounter for screening for diseases of the blood and blood-forming organs and certain disorders involving the immune mechanism Thyroid Stimulating Hormone 06/24/24 Z13.29 - Encounter for screening for other suspected endocrine disorder Lipid Panel 06/24/24 Z13.220 - Encounter for screening for lipoid disorders Comprehensive [place]irie. Panel Fast 06/24/24 Z13.9 - Encounter for screening, unspecified Coding Level of Care Code Est Pt Level 4 (85961) Diagnoses Post herpetic neuralgia B02.29 Simple chronic bronchitis J41.0 COPD type: chronic bronchitis Chronic bronchitis type: simple Hyperlipidemia E78.5
[2024-06-24 09:38] VITALS: BP 130/82; PULSE 89; O2SAT 93; BMI 31.6
== END 2024-06-24 10:22 | disposition home or self-care (01) ==
PROVIDERS: PCP Internal Medicine; Visit Provider Internal Medicine
DX: B02.29 Other postherpetic nervous system involvement (principal); J41.0 Simple chronic bronchitis; E78.5 Hyperlipidemia, unspecified
CPT/HCPCS: 99214

== ENCOUNTER 2024-09-14 10:59 | Outpatient (REF) | payer MEDICARE, OTHER, SELFPAY ==
--- NOTE | ~2024-09-14 | XR_ITS ---
EXAMINATION: XR CHEST 2 VIEWS CLINICAL INFORMATION: Simple chronic bronchitis J41.0. COMPARISON: XR Chest 03/23/2024 TECHNIQUE: PA and lateral views of the chest were obtained. FINDINGS: The lungs are well expanded. Stable appearance of a left greater than right pleural thickening without evidence for superimposed effusion. No dense focal consolidation. Central pulmonary vascular congestion without overt edema. No pneumothorax. The cardiomediastinal silhouette is within normal limits for technique and unchanged. Aortic arch calcifications again seen. No acute osseous abnormality. XR/XR chest 2V IMPRESSION: 1. Central pulmonary vascular congestion without overt edema. 2. Stable appearance of left greater than right pleural thickening without evidence for superimposed effusion. Electronically signed by: Mesha Jacobsen DO 10/29/2024 09:17 AM FELIPA
[2024-09-14 13:23] LABS: MANUAL DIFF FLAG NO
[2024-09-14 13:49] LABS: Basophils Percent Auto 0.8 % (0-2); Eosinophils Absolute Auto 0.2 X10*3/uL (0.0-0.4); Eosinophils Percent Auto 3.1 % (0-4); Hematocrit 39.8 % (37.0-47.0); Hemoglobin 12.3 g/dl (12.0-16.0); Imm Gran Abs Auto 0.02 X10*3/uL (0.00-0.03); Imm Gran Pct Auto 0.4 % (0.0-0.4); Lymphocytes Absolute Auto 1.1 X10*3/uL (1.2-4.9); Lymphocytes Percent Auto 20.5 % (20-40); Mean Corpuscular HGB Conc 30.9 g/dl (31.0-35.0); Mean Corpuscular Hemoglobin 30.2 pg (27.0-33.0); Mean Corpuscular Volume 97.8 fL (80.0-98.0); Mean Platelet Volume 9.6 fL (9.4-12.3); Monocytes Absolute Auto 0.4 X10*3/uL (0.1-1.2); Monocytes Percent Auto 7.7 % (2-11); Neutrophils Absolute Auto 3.5 x10*3/uL (2.0-8.3); Neutrophils Percent Auto 67.5 % (45-73); Platelet Count 314 X10*3/uL (160-400); Red Blood Count 4.07 X10*6/uL (4.20-5.50); Red Cell Distribution Width 12.6 % (11.0-16.0); White Blood Count 5.2 X10*3/uL (4.8-10.8)
[2024-09-14 14:02] LABS: Alanine Aminotransferase 11 U/L (0-31); Albumin Level 3.6 g/dL (3.5-5.0); Alkaline Phosphatase 75 U/L (39-117); Anion Gap 14 (12-20); Aspartate Amino Transferase 24 U/L (5-31); Bilirubin Total 0.3 mg/dL (0.0-1.0); Blood Urea Nitrogen 22 mg/dL (9-16); Calcium 9.6 mg/dL (8.4-10.2); Carbon Dioxide 34 mmol/L (22-29); Chloride 100 mmol/L (96-108); Cholesterol 134 mg/dL (<200); Estimated Glomerular Filt Rate 31; Glucose Fasting 108 mg/dL (60-99); HDL Cholesterol 49 mg/dL (>40); LDL Cholesterol Calculated 69 mg/dL (<100); Potassium 4.1 mmol/L (3.3-5.1); Sodium 144 mmol/L (135-145); Total Protein 6.5 g/dL (6.5-8.0); Triglycerides 82 mg/dL (<150)
[2024-09-14 14:24] LABS: Thyroid Stimulating Hormone 1.37 uIU/mL (0.32-4.0)
== END 2024-09-14 11:00 | disposition home or self-care (01) ==
LOC: HO.HMGCX 10:59
PROVIDERS: PCP Internal Medicine; Referring Provider Hospitalist; Visit Provider Internal Medicine
DX: Z13.0 Encounter for screening for diseases of the blood and blood-forming organs and certain disorders involving the immune mechanism (principal); Z13.29 Encounter for screening for other suspected endocrine disorder; Z13.220 Encounter for screening for lipoid disorders; J41.0 Simple chronic bronchitis; J90 Pleural effusion, not elsewhere classified; Z13.9 Encounter for screening, unspecified
CPT/HCPCS: 36415; 71046; 80053; 80061; 84443; 85025

== ENCOUNTER 2024-09-24 09:37 | Outpatient (AMB) | payer MEDICARE, OTHER, SELFPAY ==
[2024-09-24 09:39] VITALS: BP 130/68; PULSE 76; O2SAT 93; BMI 31.6
--- NOTE | 2024-09-24 09:39 | MHC.PC.OV ---
Vital Signs 09/24/24 09:39 Height 5 ft 2 in Weight 173 lb BMI 31.6 BP 130/68 Blood Pressure Location Lt brachial Position Sitting Pulse 76 Pulse Source Pulse Oximeter Pulse Oximetry (%) 93 Oxygen Delivery Method Nasal Cannula Oxygen Flow Rate 2 Intake Visit Reasons: 3 month f/u - redo PHQ9 Intake Note: Pt's daughter requesting PCP to take over hydroxyzine hcl 10mg tablet that she got at walk in clinic. Beef Selector Required: No Accompanied by: Daughter Allergies No Known Allergies Allergy (Verified 09/24/24 11:06) Medication List - Last Reconciled 09/27/24 by Flynn Lang MD ascorbic acid (vitamin C) 500 mg PO BID budesonide 0.5 mg (2 mL) inhalation BID calcitriol 0.5 mcg PO ISAAC@0900 cholecalciferol (vitamin D3) 125 mcg PO DAILY ferrous sulfate 325 mg PO DAILY furosemide 40 mg PO DAILY hydroxyzine HCl 10 - 20 mg PO Q6H PRN ipratropium-albuterol 0.5 mg-3 mg(2.5 mg base)/3 mL 3 mL inhalation QID montelukast (Singulair) 10 mg PO BEDTIME 30 days ciprkfyj-snp-anhq-FA-vit K-lut 8 mg iron-400 mcg-50 mcg (Centrum Silver Women) 1 tab PO DAILY nebulizers As directed Oxygen Home Use As directed paroxetine HCl 40 mg PO BEDTIME simvastatin 40 mg PO BEDTIME Tobacco use date assessed: 06/24/24 Fall risk assessment: No Falls in past year Last assessed Fall Risk: 09/24/24 Dental Screening Dental Screen Date: 06/24/24 HPI 3 month f/u - redo PHQ9 HPI Details hyperlipidemia on rx; doing well and compliant; COPD on )2; compliant [facility] Medical History COPD (chronic obstructive pulmonary disease) Acute confusion Pleural effusion Obesity Cataract Chronic kidney disease, stage 3b Anxiety Supplemental oxygen dependent Arthritis Intertrigo Hyperlipidemia CHF (congestive heart failure) Cellulitis Chest pain Chronic respiratory failure COPD (chronic obstructive pulmonary disease) Surgical History History of tonsillectomy History of appendectomy History of cataract surgery History of right hip replacement (~2014) History of bilateral knee replacement (~2006) Family History Father Asthma Mother Asthma Social History (Updated 09/24/24 @ 11:09 by Irma Lawson LPN) Household Members: Other Household Members Other:: grandchildren Housing: House Do you presently have visiting nurse or other home services: No Alcohol intake: never Patient Tobacco Use Status: Never used Tobacco Tobacco use type: Cigarette e-Cigarette/Vaping Use: Never Used Second Hand Smoke Exposure: No Advance Directives Date on File: 10/01/22 service: No Current occupational status: retired Cognitive needs: Yes (walker ) Hearing needs: No Vision needs: Yes (glasses) Questionnaire PHQ-9 Over the last 2 weeks, how often have you been bothered by any of the following problems? 1. Little interest or pleasure in doing things: not at all 2. Feeling down, depressed, or hopeless: not at all 3. Trouble falling or staying asleep, or sleeping too much: nearly every day 4. Feeling tired or having little energy: more than half the days 5. Poor appetite or overeating: not at all 6. Feeling bad about yourself - or that you are a failure or have let yourself or your family down: not at all 7. Trouble concentrating on things, such as reading the newspaper or watching television: not at all 8. Moving or speaking so slowly that other people could have noticed. Or the opposite - being so fidgety or restless that you have been moving around a lot more than usual: not at all 9. Thoughts that you would be better off or of hurting yourself in some way: not at all Total score: 5 Depression Screening Interpretation: Positive Depression Screening Done: Yes 75914 - PHQ-9 Billing: Yes Source: Developed by Drs. Johnny Arana, Moon Fong, Misael Shaw and colleagues, with an educational familia from [employer]. Thrive Questionnaire Date Thrive assessed: 06/24/24 KATIUSKA-7 AMB Questionnaire KATIUSKA-7 Date KATIUSKA - 7 assessed: 06/24/24 Source: Developed by Drs. Johnny Arana, Moon Fong, Misael Shaw and colleagues, with an educational familia from [employer]. Review of Systems Const Denies chills, Denies headache(s) and Denies weight loss ENT Denies headache(s) Card Denies chest pain, Denies syncope, Denies irregular heart rhythm and Denies dyspnea Resp Denies chest congestion, Denies cough and Denies dyspnea GI Denies abdominal pain, Denies change in stool character, Denies nausea and Denies vomiting Musc Denies deformity and Denies joint swelling Neuro Denies syncope and Denies headache(s) Physical exam (Primary Care) Vital Signs: Last Vital Signs Pulse 76 09/24/24 09:39 BP 130/68 09/24/24 09:39 Pulse Ox 93 09/24/24 09:39 Oxygen Delivery Method Nasal Cannula 09/24/24 09:39 Oxygen Flow Rate 2 09/24/24 09:39 BMI result Body Mass Index 31.6 Tobacco/Smoking Status: Tobacco use Status Tobacco use date assessed 06/24/24 09/24/24 09:39 Patient Tobacco Use Status Never used Tobacco 09/24/24 09:39 Tobacco use type Cigarette 09/24/24 09:40 e-Cigarette/Vaping Use Never Used 09/24/24 09:39 PHQ-9: PHQ-9 Score PHQ-9: Total score 5 09/24/24 09:55 Depression Screening Interpretation: Positive Thrive Assessment: Date of Thrive Assessment Date Thrive assessed 06/24/24 09/24/24 09:39 Const General: cooperative, comfortable, no acute distress and alert Neck Neck: Yes no lymphadenopathy Thyroid: Thyroid normal Resp Effort & Inspection: normal respiratory effort Auscultation: clear to auscultation bilaterally Percussion: percussion normal Cardio Jugular venous distension: no JVD Palpation: normal PMI Rate: regular rate Rhythm: regular rhythm Heart sounds: S1 normal heart sound present and S2 normal heart sound present GI Inspection: Yes normal to inspection Palpation (GI): No hepatosplenomegaly present Skin General skin exam: no rashes or lesions noted Extrem General: Yes no clubbing, cyanosis or edema Coding Level of Care Code Est Pt Level 3 (55820) Diagnoses Hyperlipidemia E78.5 Simple chronic bronchitis J41.0 COPD type: chronic bronchitis Chronic bronchitis type: simple Additional Codes PHQ-9 - 28907 - PHQ-9 Billing: Yes ([id number]) Assessment & Plan Assessment & Plan (1) Hyperlipidemia: Code(s): E78.5 - Hyperlipidemia, unspecified Category: Medical Plan: stable; same rx (2) COPD (chronic obstructive pulmonary disease): Code(s): J44.9 - Chronic obstructive pulmonary disease, unspecified Category: Medical Qualifiers: COPD type: chronic bronchitis Chronic bronchitis type: simple Qualified Code(s): J41.0 - Simple chronic bronchitis Plan: stable; same rx Orders: Orders Lipid Panel Today Z13.220 - Encounter for screening for lipoid disorders Thyroid Stimulating Hormone Today Z13.29 - Encounter for screening for other suspected endocrine disorder Complete Blood Count Auto Diff Today Z13.0 - Encounter for screening for diseases of the blood and blood-forming organs and certain disorders involving the immune mechanism Comprehensive [place]. Panel Fast Today Z13.9 - Encounter for screening, unspecified
== END 2024-09-24 10:04 | disposition home or self-care (01) ==
PROVIDERS: PCP Internal Medicine; Visit Provider Internal Medicine
DX: E78.5 Hyperlipidemia, unspecified (principal); J41.0 Simple chronic bronchitis

== ENCOUNTER → 2024-09-24 09:37 | Outpatient (BNVA) | payer MEDICARE, OTHER, SELFPAY | PROVIDERS: PCP Internal Medicine; Visit Provider Internal Medicine | DX: J41.0 Simple chronic bronchitis (principal); I50.9 Heart failure, unspecified; J96.11 Chronic respiratory failure with hypoxia; J90 Pleural effusion, not elsewhere classified; E78.5 Hyperlipidemia, unspecified | CPT/HCPCS: 96127; 99212 ==

== ENCOUNTER 2024-09-24 10:16 | Outpatient (AMB) | payer MEDICARE, OTHER, SELFPAY ==
[2024-09-24 11:03] VITALS: BP 134/7; PULSE 81; O2SAT 96; BMI 31.1
--- NOTE | 2024-09-24 11:03 | MHC.OFFVIS ---
Vital Signs 09/24/24 11:03 Height 5 ft 2 in Weight 170 lb BMI 31.1 BP 134/7 L Blood Pressure Location Lt brachial Position Sitting Pulse 81 Pulse Source Pulse Oximeter Pulse Oximetry (%) 96 Oxygen Delivery Method Nasal Cannula Oxygen Flow Rate 2 Intake Visit Reasons: COPD Front Office Clerk Required: No Farm Machinery Erector: Farm Machinery Erector offered & declined Accompanied by: Self / Same As Patient Allergies No Known Allergies Allergy (Verified 09/24/24 11:06) Medication List - Last Reconciled 09/24/24 by Irma Lawson LPN ascorbic acid (vitamin C) 500 mg PO BID budesonide 0.5 mg (2 mL) inhalation BID calcitriol 0.5 mcg PO ISAAC@0900 cholecalciferol (vitamin D3) 125 mcg PO DAILY ferrous sulfate 325 mg PO DAILY furosemide 40 mg PO DAILY hydroxyzine HCl 10 - 20 mg PO Q6H PRN ipratropium-albuterol 0.5 mg-3 mg(2.5 mg base)/3 mL 3 mL inhalation QID montelukast (Singulair) 10 mg PO BEDTIME 30 days yvzfhdsv-ylc-swev-FA-vit K-lut 8 mg iron-400 mcg-50 mcg (Centrum Silver Women) 1 tab PO DAILY nebulizers As directed Oxygen Home Use As directed paroxetine HCl 40 mg PO BEDTIME simvastatin 40 mg PO BEDTIME HPI Comments Details: The patient is an 88-year-old woman with a known history of asthma COPD overlap syndrome, nocturnal hypoxia and sleep apnea. She does not use CPAP. She does use oxygen at nighttime. She has been having persistent wheezing and shortness of breath. She has a baseline. She is responding well to the current respiratory regimen. He has been having issues with cellulitis and lower extremity edema. She was initially placed on Keflex without any significant improvement. She was then [facility] which she had ultrasound negative for DVT and also had a chest x-ray demonstrating mild congestive heart failure with pleural effusions. She had been stopping her diuretics because occasions with eating or. However since then she has been using her Lasix daily 40 mg daily. She was also switched over to doxycycline appears to have cellulitis getting better but not completely gone. Therefore she needs additional antibiotics at this time. 02/28/2023 the patient is here for pulmonary follow-up visit. She continues to have some shortness of breath and chest tightness. She has a hard time walking. She does use a walker. She is now on continues oxygen although she has a portable oxygen concentrator in her house. She does to not be able to use the pulse device well. I encouraged her to try it again to see if she can get used to it in order for her to have better portability time. In addition to this the patient has been using her nebulized therapy. Seems like the DuoNeb works better than the other bronchodilator therapy so therefore will switch over to DuoNeb 4 times a day and she can use the budesonide twice a day. Hopefully this works a little better for as long she can tolerated. The patient also is having some allergy symptoms so therefore she should be placed on singular at this time to help her with her respiratory symptoms. 09/23/2023 the patient is here for pulmonary follow-up visit. overall the patient is doing better. Recently she did call because of worsening respiratory symptoms. The patient had a exacerbation of her breathing. She did take prednisone antibiotics and her symptoms did improve. she continues use respiratory therapy. Although she has been using the budesonide. She will go ahead and restarted once a day. In addition to that she does have increased lower extremity edema. She is not weighing herself. She does have a scale at home. patient did have a chest x-ray sometime in May 2023 demonstrating interval resolution of the pneumonia but she did have bilateral pleural effusions suggesting volume overload status. Patient is taking Lasix 40 mg daily. She will go ahead and increase it to 80 mg for 2-3 days and will continue to weigh herself. She will follow-up with her primary care doctor soon. 02/23/2024 the patient is here for a pulmonary follow-up visit. Overall she is doing okay. She still has her symptoms of dyspnea on exertion. [id number] severity. She had a tendency of only using her nebulizer as needed. Family has become more adamant making sure that she does use it 2 to 3 times a day. I believe that this is helpful. Her symptoms have improved since she has been more adherent to her therapy. In addition to that we did look at her last chest x-ray demonstrating bilateral pleural effusions and suggesting of volume overload status. We did talk about the importance of monitoring closely her daily weights. The patient is aware that sometimes she may need additional diuresis. we talked about cardiac asthma as potential peribronchial edema could be the resulting in increased airway resistance and wheezing and chest tightness. Therefore she understands that keeping her volume status down will help her overall with her obstructive airway disease and also her dyspnea symptoms. She does continue to use a nebulizer therapy as is affective from beneficial. She also has her oxygen that she uses with activity and sleep. The therapy also has been affecting beneficial. 09/24/2024 the patient is here for a pulmonary follow-up visit. The patient has been having more issues with hypoxia with activity. She is using her oxygen all times. Typically on 2 L. when she walks though she desaturates down to the high 80s low 90s. This is even with minimal activity in the home. She has not been taking her diuretics since she has been going to appointments. For the last 2 days she has not taking it. The patient did have a chest x-ray late August that we personally reviewed. Appears to have some haziness and likely some interstitial congestion right more than left. She also has a chronic left-sided pleural effusion. I explained to them that she is at risk of developing heart failure she is does not take her diuretics regularly. She is going to develop on the diuretics for the weekend to try to get her negative fluid balance. Also, we did go for walking oximetry. The patient was placed on 2 L and she ambulated. She actually maintain a pulse ox of 98% on 2 L with activity when she breathe through her nose. But she is a mouth breather and quickly goes back to breathing through her mouth in the oxygen does drop to about 89%. Therefore, if the patient is noticing that is dropping is okay to increase it to 3 L but if she is reminded to breathe through her nose she is able to keep it at 2 L. the patient also would like to take off the oxygen when resting and sitting she does not feel like she needs it. I did advise her that that is okay only if somebody is with her to watchers especially since she has episodes of confusion and disorientation. [facility] Medical History COPD (chronic obstructive pulmonary disease) Acute confusion Pleural effusion Obesity Cataract Chronic kidney disease, stage 3b Anxiety Supplemental oxygen dependent Arthritis Intertrigo Hyperlipidemia CHF (congestive heart failure) Cellulitis Chest pain Chronic respiratory failure COPD (chronic obstructive pulmonary disease) Surgical History History of tonsillectomy History of appendectomy History of cataract surgery History of right hip replacement (~2014) History of bilateral knee replacement (~2006) Family History Father Asthma Mother Asthma Social History (Updated 09/24/24 @ 11:09 by Irma Lawson LPN) Household Members: Other Household Members Other:: grandchildren Housing: House Do you presently have visiting nurse or other home services: No Alcohol intake: never Patient Tobacco Use Status: Never used Tobacco Tobacco use type: Cigarette e-Cigarette/Vaping Use: Never Used Second Hand Smoke Exposure: No Advance Directives Date on File: 10/01/22 service: No Current occupational status: retired Cognitive needs: Yes (walker ) Hearing needs: No Vision needs: Yes (glasses) Review of Systems Const Denies chills, Reports daytime sleepiness, Reports difficulty sleeping, Reports fatigue, Denies fever(s) and Denies poor appetite Eyes Denies no additional complaints ENT Reports Normal hearing present Card Denies chest pain, Denies syncope, Denies rapid heart rate, Reports leg edema, Denies dyspnea and Reports dyspnea on exertion Resp Reports cough, Denies dyspnea, Reports dyspnea on exertion and Reports wheezing GI Denies change in stool character, Denies constipation, Denies diarrhea, Denies nausea and Denies vomiting Denies urinary frequency, Denies dysuria and Denies urinary urgency Neuro Reports Normal hearing present and Denies syncope Endo Reports fatigue Aller/Immun Reports wheezing Physical Exam Vital Signs: Last Vital Signs Pulse 81 09/24/24 11:03 BP 134/7 L 09/24/24 11:03 Pulse Ox 96 09/24/24 11:03 Oxygen Delivery Method Nasal Cannula 09/24/24 11:03 Oxygen Flow Rate 2 09/24/24 11:03 BMI result Body Mass Index 31.1 Const General: tired appearing Neck Neck: Yes normal visual inspection, Yes full ROM and Yes no lymphadenopathy Chest Chest palpation & inspection: normal inspection of the chest Resp Auscultation: no rales, no rhonchi, no wheezes and diminished lung sounds Cardio Rate: regular rate Rhythm: regular rhythm Heart sounds: S1 normal heart sound present and S2 normal heart sound present GI Palpation (GI): Soft to palpation and nontender Auscultation: normal bowel sounds Skin General skin exam: rashes and/or lesions noted Neuro Cranial nerves: Yes Normal hearing present Extrem General: Yes edema and Yes venous stasis dermatitis Assessment & Plan Assessment & Plan (1) COPD (chronic obstructive pulmonary disease): Code(s): J44.9 - Chronic obstructive pulmonary disease, unspecified Category: Medical Qualifiers: COPD type: chronic bronchitis Chronic bronchitis type: simple Qualified Code(s): J41.0 - Simple chronic bronchitis (2) CHF (congestive heart failure): Code(s): I50.9 - Heart failure, unspecified Category: Medical Qualifiers: Heart failure type: unspecified Heart failure chronicity: unspecified Qualified Code(s): I50.9 - Heart failure, unspecified (3) Chronic respiratory failure: Code(s): J96.10 - Chronic respiratory failure, unspecified whether with hypoxia or hypercapnia Category: Medical Qualifiers: Respiratory failure complication: hypoxia Qualified Code(s): J96.11 - Chronic respiratory failure with hypoxia (4) Pleural effusion: Code(s): J90 - Pleural effusion, not elsewhere classified Category: Medical Plan continue budesonide daily Duoneb 2-4 times a day continue Singulair EMIR as needed Oxygen continuously 2L diuresis as tolerated daily weights, additional diuresis if >2lb/24hr or 3lbs/48 hours start Ohtovayre nebs F/U 4-6 months Coding Level of Care Code Est Pt Level 4 (77188) Diagnoses Simple chronic bronchitis J41.0 COPD type: chronic bronchitis Chronic bronchitis type: simple Congestive heart failure, unspecified HF chronicity, unspecified heart failure type I50.9 Heart failure type: unspecified Heart failure chronicity: unspecified Chronic respiratory failure with hypoxia J96.11 Respiratory failure complication: hypoxia Pleural effusion J90 Time Spent (min) 16
== END 2024-09-24 11:34 | disposition home or self-care (01) ==
PROVIDERS: PCP Internal Medicine; Visit Provider Hospitalist
DX: J41.0 Simple chronic bronchitis (principal); I50.9 Heart failure, unspecified; J96.11 Chronic respiratory failure with hypoxia; J90 Pleural effusion, not elsewhere classified
CPT/HCPCS: 99214